=== PATIENT | female | born 1945 | race Two or more races ===

== ENCOUNTER 2024-04-09 15:05 | Emergency (ER) | payer OTHER, SELFPAY ==
[2024-04-09] VITALS (16 sets, daily range): BP systolic 181–228; BP diastolic 73–82; PULSE 49–88; RESP 15–23; TEMP 36.3–36.8; O2SAT 92–100; BMI 44.6
--- NOTE | 2024-04-09 15:15 | EKG_ITS ---
[facility] Test Date: 2024-04-09 Pat Name: DIANA ALVA Department: Room: - Gender: Female [employer]over: : 1945 Requested By: Alirio Parr Order Number: [id number] Reading MD: Alirio Parr Measurements Intervals [place] Rate: 51 P: 69 UT: 190 QRS: 34 QRSD: 96 T: 127 QT: 459 QTc: 424 Interpretive Statements SINUS BRADYCARDIA ST DEVIATION AND MODERATE T-WAVE ABNORMALITY, CONSIDER LATERAL ISCHEMIA [-0.1+ mV T WAVE IN I/aVL/V5/V6] Compared to ECG 09/18/2023 03:47:30 Possible ischemia now present Sinus rhythm no longer present T-wave abnormality still present /store/S0/[id number]/ecg/[id number].pdf
--- NOTE | 2024-04-09 15:15 | XR_ITS ---
Examination: AP chest single view Technique: AP portable sitting chest single view Exam date and time: April 09, 2024 1611 hrs. Comparison September 18, 2023 Indications: Coughing shortness of breath beginning 3 days ago. Findings: Bibasilar pneumonia, more severe left base Mild elevation left hemidiaphragm Prominent central pulmonary arteries, pulmonary artery hypertension pattern with mild vascular congestion Severe osteopenia Impression: Bibasilar pneumonia Pulmonary artery hypertension pattern
[2024-04-09 15:33] LABS: Basophils # (Auto) 0.1 Thou/mm3 (0.0-0.2); Basophils % (Auto) 0 % (0-2.5); Eosinophils # (Auto) 0.6 Thou/mm3 (0.0-0.5); Eosinophils % (Auto) 4 % (0-10); Hematocrit 39.3 % (36.0-46.0); Hemoglobin 12.7 g/dL (12.0-16.0); Immature Granulocytes % (Auto) 1 % (0-0); Immature Granulocytes Auto 0.09 Thou/mm3 (0.00-0.00); Lactate (Lactic Acid) 1.1 mMol/L (0.4-2.0); Lymphocytes # (Auto) 2.2 Thou/mm3 (1.0-4.8); Lymphocytes % (Auto) 15 % (10-50); Mean Corpuscular HGB Conc 32.3 g/dl (31.0-37.0); Mean Corpuscular Hemoglobin 28.5 pg (25.0-35.0); Mean Corpuscular Volume 88 fL (80-100); Monocytes # (Auto) 1.1 Thou/mm3 (0.0-0.8); Monocytes % (Auto) 8 % (0-12); Neutrophils # (Auto) 10.4 Thou/mm3 (1.8-7.7); Neutrophils % (Auto) 72 % (37-80); Nucleated Red Blood Cell % 0 /100 WBC (0); Platelet Count 263 Thou/mm3 (140-440); RDW Standard Deviation 42.9 fL (36.4-46.3); Red Blood Count 4.46 Miln/mm3 (4.00-5.20); White Blood Count 14.4 Thou/mm3 (3.6-11.0)
--- NOTE | 2024-04-09 15:40 | PC.NURSE ---
PT CAME IN WITH C/O COUGH AND DIFFICULTY BREATHING FOR A FEW DAYS BUT STATES ITS BEEN WORSE THE LAST 2 DAYS. PT IS ABLE TO SPEAK FULL SENTENCES AT THIS TIME WITHOUT DIFFICULTY. RESPIRATIONS EVEN AND UNLABORED. PT STATES SOB IS WORSE ON EXERTION. PT PLACED ON CC MONITOR
[2024-04-09] MEDS: predniSONE 20 MG TABLET 60 MG PO (16:00)
[2024-04-09 16:14] LABS: Alanine Aminotransferase 9 U/L (10-49); Albumin, Serum 3.8 gm/dL (3.4-4.8); Albumin/Globulin Ratio 1.5 (1.2-2.2); Alkaline Phosphatase 79 U/L (46-116); Anion Gap 6 (7-16); Aspartate Amino Transferase 10 U/L (0-34); BUN/Creatinine Ratio 21 Ratio (12-20); Bilirubin,Total 0.5 mg/dL (0.3-1.2); Blood Urea Nitrogen 21 mg/dL (9-23); Calcium (Corrected) 9.2 mg/dL (8.5-10.1); Carbon Dioxide 28.6 mMol/L (20.0-31.0); Chloride 102 mMol/L (98-107); Estimated Creatinine Clearance 58.6 mL/min (>60); Globulin 2.6 gm/dL (2.3-3.5); Glucose 228 mg/dL (74-106); Osmolality,Calculated 283 (275-295); Potassium 4.2 mMol/L (3.4-5.1); Procalcitonin 0.05 ng/ml (0.0-0.49); Sodium 137 mMol/L (136-145); Total Protein 6.4 gm/dL (5.7-8.2); eGFR 58 See Note
[2024-04-09] MEDS: ALBUTEROL/IPRATROPIUM (Duoneb) RT SOL 3 ML NEBU INH ×2 (16:23→21:00)
[2024-04-09] MEDS: IPRATROPIUM RT 0.5 MG/ 2.5 ML NEBU INH (17:15)
--- NOTE | 2024-04-09 17:58 | PD.EDSOB ---
ED SOB =RME/HPI General Chief Complaint: Shortness of Breath/Dyspnea Stated Complaint: SOB Time Seen by Provider: 04/09/24 15:09 Arrival date/time: 04/09/24 15:05 RME / HPI RME / HPI Narrative: 78-year-old female with history of COPD who presents with 3 days of cough and now 2 days of worsening shortness of breath. Patient uses oxygen 2 L nasal cannula as needed but has not used it these last 2 days. She is not currently on steroids, she is not currently on antibiotics. She denies flu shot this year. She denies chest pain. Related Data Home Medications ?Medication ?Instructions ?Recorded ?Confirmed fluticasone fur. 100 mcg-umeclid inhalation 07/28/23 62.5 mcg-vilant 25 mcg inhalat.powder (Trelegy Ellipta) furosemide 40 mg tablet 40 mg PO 1XD 07/28/23 07/28/23 Previous Rx's ?Medication ?Instructions ?Recorded albuterol sulfate 90 mcg/actuation 2 inh inhalation Q4H PRN shortness 07/09/22 aerosol inhaler of breath or wheezing #8.5 grams albuterol sulfate 90 mcg/actuation 2 puff inhalation Q4HR PRN 04/11/23 aerosol inhaler Shortness Of Breath #1 inh amiodarone 200 mg tablet 200 mg PO QDAY #30 tabs 04/11/23 aspirin 81 mg tablet,delayed 81 mg PO QDAY #30 tabs 04/11/23 release atenolol 50 mg tablet 50 mg PO QDAY #30 tabs 04/11/23 atorvastatin 40 mg tablet 40 mg PO QPM #30 tabs 04/11/23 fluticasone fur. 100 mcg-umeclid 1 inh inhalation QDAY #60 ea 04/11/23 62.5 mcg-vilant 25 mcg inhalat.powder (Trelegy Ellipta) insulin glargine 100 unit/mL (3 10 unit (0.1 mL) subcut QPM #15 mL 04/11/23 mL) subcutaneous pen (Lantus Solostar U-100 Insulin) lisinopril 40 mg tablet 40 mg PO QDAY #30 tabs 04/11/23 pen needle, diabetic 29 gauge x #100 ea 04/11/2304/11 (Pen Needle) albuterol sulfate 90 mcg/actuation 1 inh inhalation QID PRN shortness 09/08/23 aerosol inhaler of breath or wheezing #8.5 grams doxycycline monohydrate 100 mg 100 mg PO BID #10 caps 09/08/23 capsule prednisone 50 mg tablet 50 mg PO QDAY #5 tabs 09/08/23 albuterol sulfate 2.5 mg/3 mL 2.5 mg (3 mL) inhalation Q4H PRN 09/18/23 (0.083 %) solution for nebulization shortness of breath or wheezing #90 mL albuterol sulfate 90 mcg/actuation 2 inh inhalation Q4H PRN shortness 09/18/23 aerosol inhaler of breath or wheezing #8.5 grams azithromycin 250 mg tablet See Rx Instructions PO .COMPLEX #6 09/18/23 (Zithromax Z-Peter) tabs prednisone 50 mg tablet 50 mg PO QDAY 5 days #5 tabs 04/09/24 Allergies Allergy/AdvReac Type Severity Reaction Status Date / Time No Known Allergies Allergy Verified 04/09/24 15:41 Review of Systems Review of Systems Systems Reviewed: All systems reviewed, normal except as documented ED Exam Narrative Physical exam: GENERAL APPEARANCE: AxOx4, generally well-appearing, no acute distress, elevated BMI HEENT: NC, AT. MMM. EOMI, clear conjunctiva, oropharynx clear. NECK: Supple without lymphadenopathy. No stiffness or restricted ROM. HEART: Normal rate and regular rhythm, normal S1/S1, no m/r/g LUNGS: moving air well. Can expiratory wheezes. no crackles or wheezes are heard. ABDOMEN: Soft, nontender, nondistended with good bowel sounds heard. BACK: No midline C/T/L spine pain or deformity, No CVAT, no obvious deformity. EXTREMITIES: Without cyanosis, clubbing or edema. MUSCULOSKELETAL: FROM of all major joints, no chest tenderness NEUROLOGICAL: Grossly nonfocal. Alert and oriented, moving all 4 extremities. CN not formally tested but appear grossly intact. Observed to ambulate with normal gait. Skin: Warm and dry without any rash. Course Course Course Narrative: After first nebulizer treatment patient states breathing has mildly improved, auscultation reveals continued bolden expiratory wheezes. Will continue additional nebulized treatments. Quality Measures none Orders Category Date Time Status EKG (ED ONLY) *Do not use* NOW Care 04/09/24 15:15 Completed EKG (ED Only) Stat Exams 04/09/24 15:15 Draft XR chest 1V Stat Exams 04/09/24 15:15 Completed CBC Stat Lab 04/09/24 15:27 Completed CMP [Comprehensive Metabolic Panel] Stat Lab 04/09/24 15:27 Completed Lactate (Lactic Acid) Stat Lab 04/09/24 15:27 Completed Procalcitonin Stat Lab 04/09/24 15:27 Completed ALBUTEROL RT 5 ml [Proventil Rt 5 ml] Med 04/09/24 17:05 Discontinued 5 mg INH X1 ONE Albuterol/Ipratr Rt Laura [Duoneb Rt Laura] Med 04/09/24 15:14 Discontinued 3 ml INH X1 ONE Ipratropium Forgan Rt Laura [Atrovent Rt Laura] Med 04/09/24 17:05 Discontinued 0.5 mg INH X1 ONE predniSONE Med 04/09/24 15:14 Discontinued 60 mg PO X1 ONE Vital Signs Vital signs: Vital Signs Temperature 98.2 F 04/09/24 15:29 Pulse Rate 51 L 04/09/24 15:29 Respiratory Rate 18 04/09/24 15:29 Blood Pressure 198/82 H 04/09/24 15:29 Pulse Oximetry (%) 97 04/09/24 15:29 Oxygen Delivery Method Room Air 04/09/24 15:29 Shortness of Breath / Dyspnea MDM Narrative MDM Narrative:: 78-year-old female with history of COPD who presents with signs and symptoms consistent with a COPD exacerbation in the setting of a upper respiratory infection/cough. She has a long history of COPD, is elderly and fragile therefore further workup such as laboratory testing and chest x-ray indicated here today. She was started on oral steroids and aggressive bronco dilator treatment. Patient was signed out to oncoming provider pending results, reevaluation, and final disposition Patient data External records reviewed:: [facility] previous records Clinical information provided by:: patient Social determinants that could affect healthcare access:: none Patient has the following chronic illnesses:: COPD How is presenting disease/condition affected by chronic disease/condition?: no chronic disease Evaluation data The following diagnostics were reviewed and interpreted by me:: lab results, radiology exam(s) and EKG tracing(s) Lab and/or radiology exams considered but not ordered:: Workup in progress Interpretation Summary: Workup in progress Medications / Prescriptions Medications or Prescriptions considered but not ordered:: Workup in progress Medication administrations:: Medication Administration History Discontinued Medications Albuterol (Albuterol Rt 25 Mg/5 Ml Nebu) 5 mg INH X1 ONE Stop: 04/09/24 17:06 Last Admin: 04/09/24 17:21 Dose: Not Given Documented By: CHRISTINE Non-Admin Reason: Medication Not Available Albuterol/Ipratropium (Albuterol/Ipratropium (Duoneb) Rt Laura 3 Ml Nebu) 3 ml INH X1 ONE Stop: 04/09/24 15:15 Last Admin: 04/09/24 16:23 Dose: 3 ml Documented By: CHRISTINE Ipratropium Forgan (Ipratropium Rt 0.5 Mg/ 2.5 Ml Nebu) 0.5 mg INH X1 ONE Stop: 04/09/24 17:06 Last Admin: 04/09/24 17:15 Dose: 0.5 mg Documented By: CHRISTINE Prednisone (Prednisone 20 Mg Tablet) 60 mg PO X1 ONE Stop: 04/09/24 15:15 Last Admin: 04/09/24 16:00 Dose: 60 mg Documented By: DO Above Consultations Consultation(s) initiated? (list below): No Diagnosis Shortness of Breath Differential Diagnosis: acute exacerbation of chronic obstructive airways disease, congestive heart failure, community acquired pneumonia and asthma with exacerbation Most likely diagnosis given after review of the tests above:: Workup in progress Admission Indicated Admission indicated?: not indicated Admission Request Was there a request for admission?: No Admission Attestation Admission request attestation: Workup in progress, patient signed out to oncoming provider, Dr. Vallecillo, pending results, reevaluation, and final disposition Disposition Plan Disposition Plan: other (specify) (Signed out to oncoming provider in stable condition) Discharge Plan Prescriptions/Referrals Prescriptions/Med Rec: New prednisone 50 mg tablet 50 mg PO QDAY 5 Days Qty: 5 0RF No Action albuterol sulfate 90 mcg/actuation HFA aerosol inhaler 2 inh inhalation Q4H PRN (Reason: shortness of breath or wheezing) Qty: 8.5 0RF Trelegy Ellipta 100-62.5-25 mcg blister with device 1 inh inhalation QDAY Qty: 60 0RF insulin glargine [Lantus Solostar U-100 Insulin] 100 unit/mL (3 mL) insulin pen 10 unit subcut QPM Qty: 15 0RF (DME) pen needle, diabetic [Pen Needle] 29 gauge x 1/2 needle See Rx Instructions .Route Qty: 100 0RF Rx Instructions: As directed, once daily amiodarone 200 mg tablet 200 mg PO QDAY Qty: 30 0RF aspirin 81 mg tablet,delayed release (DR/EC) 81 mg PO QDAY Qty: 30 0RF lisinopril 40 mg tablet 40 mg PO QDAY Qty: 30 2RF atenolol 50 mg Tablet 50 mg PO QDAY Qty: 30 0RF atorvastatin 40 mg tablet 40 mg PO QPM Qty: 30 0RF albuterol sulfate 90 mcg/actuation HFA aerosol inhaler 2 puff INHALATION Q4HR PRN (Reason: Shortness Of Breath) Qty: 1 0RF furosemide 40 mg tablet 40 mg PO 1XD Trelegy Ellipta 100-62.5-25 mcg blister with device INHALATION albuterol sulfate 90 mcg/actuation HFA aerosol inhaler 1 inh inhalation QID PRN (Reason: shortness of breath or wheezing) Qty: 8.5 0RF doxycycline monohydrate 100 mg capsule 100 mg PO BID Qty: 10 0RF prednisone 50 mg tablet 50 mg PO QDAY Qty: 5 0RF albuterol sulfate 2.5 mg /3 mL (0.083 %) solution for nebulization 2.5 mg inhalation Q4H PRN (Reason: shortness of breath or wheezing) Qty: 90 0RF albuterol sulfate 90 mcg/actuation HFA aerosol inhaler 2 inh inhalation Q4H PRN (Reason: shortness of breath or wheezing) Qty: 8.5 0RF azithromycin [Zithromax Z-Peter] 250 mg tablet See Rx Instructions PO .COMPLEX Qty: 6 0RF Rx Instructions: For 250 mg dose pack: take 500 mg today (day 1), then 250 mg for 4 days (days 2-5) Referrals: Agustín Reece MD [Primary Care Provider] - In 1 week Problem List Clinical Impression: Asthma exacerbation in COPD, Bronchitis Patient/Caregiver Discharge Instructions Education Materials: ED COPD Flare Additional Instructions: Continue with 1 puff from your inhaler every 6 hours for the next 3 days. After 3 days you can use your inhaler as needed for shortness of breath/wheezing. Follow-up with your primary care doctor in 2 to 3 days for recheck. You can return to the emergency department sooner symptoms worsen or if he notes any new, concerning issues. Print Language: Turkish
--- NOTE | 2024-04-09 18:07 | EDNOTE_ITS ---
Emergency Room Addendum Addendum Narrative: 1800: Care assumed from Dr. Parr, the previous shift emergency physician. Past medical, surgical, social and family history reviewed. Vitals and home medications reviewed. Results and treatment plan discussed. I will assume the care of the patient at this time and will follow the patient, pending CXR, labs, and re-evaluation. Please refer to the emergency department record for history and examination from initial visit. WBC count is elevated at 14.4, Glucose is elevated at 228, Lactic Acid is normal, Procalcitonin is normal, according to my interpretation. CXR shows normal cardiac silhouette, normal sharp diaphragmatic edge, bilateral perihilar inferior infiltrates, normal costophrenic angles, according to my interpretation. EKG done at 1612. sinus bradycardia, rate of 51, normal axis, no ectopy, inverted T waves in lead I and aVL, no acute ischemia, according to my interpretation. 2024: On re-evaluation, patient states she always has a hard time breathing and was coughing up yellow sputum. She is on 2L PRN at home and does not feel that she needs it right now. Patient will receive another nebulizer treatment and antibiotics before being discharged home. Diagnosis: bibasilar pneumonia RADIOLOGY RESULTS: [facility] Report Signed Patient: DIANA ALVA Record#: [id number] Birthdate: 1945 Age/Sex: 78 / F Location: [facility] Attending Dr: Ordering Physician: Alirio Parr MD Date of Service: 04/09/24 Procedure(s): XR chest 1V Accession Number(s): [id number] cc: Agustín Reece MD; Alirio Parr MD; Garcia Mcnamara MD~ Examination: AP chest single view Technique: AP portable sitting chest single view Exam date and time: April 09, 2024 1611 hrs. Comparison September 18, 2023 Indications: Coughing shortness of breath beginning 3 days ago. Findings: Bibasilar pneumonia, more severe left base Mild elevation left hemidiaphragm Prominent central pulmonary arteries, pulmonary artery hypertension pattern with mild vascular congestion Severe osteopenia Impression: Bibasilar pneumonia Pulmonary artery hypertension pattern Dictated By: Garcia Mcnamara MD Signed By: <Electronically signed by Garcia Mcnamara MD in OV> 04/09/24 [id number]
--- NOTE | 2024-04-09 18:15 | PC.NURSE ---
PT RESTING IN BED IN NO APPARENT DISTRESS. CALL LIGHT WITHIN REACH
--- NOTE | 2024-04-10 01:11 | PC.NURSE ---
0110 PURNIMA ATTEMP UNANSWERED AT THIS TIME. HAVE MAD NUMEROUS ATTEMPT TO CONTACT PERSONS ON CONTACT LIST SPOKE WITH SON KAITLIN HE STATED HE WAS IN FOR THE NIGHT. I ASKED HIM TO CLARIFY AND HE STATED HE WASN'T GOING ANYWHERE TONIGHT.
== END 2024-04-09 21:00 | disposition home or self-care (01) ==
PROVIDERS: Emergency Provider Emergency Medicine; PCP Family Medicine; Referring Provider Emergency Medicine
DX: J45.901 Unspecified asthma with (acute) exacerbation (principal); J44.1 Chronic obstructive pulmonary disease with (acute) exacerbation; J44.0 Chronic obstructive pulmonary disease with (acute) lower respiratory infection; R00.1 Bradycardia, unspecified; J18.9 Pneumonia, unspecified organism
CPT/HCPCS: 36415; 71045; 80053; 83605; 84145; 85025; 94640; 99284; A9270; J7512

== ENCOUNTER 2024-06-15 10:38 | Inpatient (IN) | payer OTHER, MEDICARE, SELFPAY ==
[2024-06-15] VITALS (13 sets, daily range): BP systolic 168–219; BP diastolic 54–120; PULSE 62–74; RESP 16–89; TEMP 36.6–36.9; O2SAT 94–99; BMI 46.0
--- NOTE | 2024-06-15 10:40 | PC.NURSE ---
PT BROUGHT IN BY AMBULANCE FROM HOME. PER MEDIC, PT'S ARRESTED TODAY AND THERE IS NO ONE TO CARE FOR PT. MEDIC STATES POLICE ON SCENE PUT HER ON 5150 FOR GRAVELY DISABLED SINCE SHE CAN NOT WALK OR TAKE CARE OF HERSELF AND THE POLICE ARE CONDEMING HER HOUSE. MEDIC STATES HOME CLUTTERED AND FILLED WITH [employer]. PT STATES HAS NOT HAD SHOWER IN AT LEAST 1 WEEK. STATES MY HOUSE IS CLUTTERED BUT CLEAN. THEY JUST CLEANED THE AREA I LIVE IN. MEMBER OF PARLIAMENT INFORMED ABOUT 5150 AND CONDITION OF PT'S HOME (FROM THE MEDIC).
--- NOTE | 2024-06-15 10:41 | PD.EDADULT ---
ED General RME/HPI General Chief complaint: General Adult/Misc Complain Stated complaint: HOLD FOR GRAVELY DISABLED Time Seen by Provider: 06/15/24 10:51 Arrival date/time: 06/15/24 10:38 RME / HPI RME / HPI narrative: DR. RICHMOND MAIN ED EVALUATION: 78 year old female presents to the Emergency Department BIBA after her section hand helper was arrested prior to arrival and police on-scene placed the patient on a hold for gravely disabled. Patient is on hospice care. Patient denies any complaints, asymptomatic. Per EMS, at home it was dirty with dog feces everywhere, non living conditions. Patient reports hospice comes only once a month. PMHx: Atrial fibrillation, CHF, CAD, COPD on 2L home oxygen, type 2 diabetes. Social Hx: No tobacco, alcohol, or substance use. Related Data Home Medications ?Medication ?Instructions ?Recorded ?Confirmed furosemide 40 mg tablet 40 mg PO 1XD 07/28/23 06/15/24 tiotropium bromide 1.25 2 inh inhalation Q24H 06/15/24 06/15/24 mcg/actuation mist for inhalation (Spiriva Respimat) Previous Rx's ?Medication ?Instructions ?Recorded albuterol sulfate 90 mcg/actuation 2 inh inhalation Q4H PRN shortness 07/09/22 aerosol inhaler of breath or wheezing #8.5 grams albuterol sulfate 90 mcg/actuation 2 puff inhalation Q4HR PRN 04/11/23 aerosol inhaler Shortness Of Breath #1 inh aspirin 81 mg tablet,delayed 81 mg PO QDAY #30 tabs 04/11/23 release atenolol 50 mg tablet 50 mg PO QDAY #30 tabs 04/11/23 atorvastatin 40 mg tablet 40 mg PO QPM #30 tabs 04/11/23 lisinopril 40 mg tablet 40 mg PO QDAY #30 tabs 04/11/23 albuterol sulfate 2.5 mg/3 mL 2.5 mg (3 mL) inhalation Q4H PRN 09/18/23 (0.083 %) solution for nebulization shortness of breath or wheezing #90 mL Allergies Allergy/AdvReac Type Severity Reaction Status Date / Time No Known Allergies Allergy Verified 06/15/24 10:52 Review of Systems Review of Systems Systems Reviewed: All systems reviewed, normal except as documented Narrative Review of Systems: GEN: No fever, no chills, no weight loss EYES: No discharge, no visual changes, no pain HEENT: No ear pain, no congestion, no sore throat PULM: No shortness of breath, no cough, no congestion CV: No chest pain, no dyspnea on exertion, no palpitations GI: No nausea, no vomiting, no diarrhea, no pain, no constipation : No frequency, no urgency and no dysuria MUSC/SKEL: No joint pain, no back pain SKIN: No rash PSYCH: No hallucinations, no depression HEME/LYMPH: No easy bleeding or bruising tendencies NEURO: No weakness, no headache Past Medical History Past Medical History NEUROLOGIC: Positive Neurological Disorders and Cerebrovascular Accident; Negative Seizures CARDIAC: Positive Cardiac Disorders, Atrial Fibrillation, Hypercholesterolemia, Congestive Heart Failure, Cellulitis and Hypertension RESPIRATORY: Positive Chronic Obstructive Pulmonary Disease (COPD), Asthma, Pneumonia, Sleep Apnea and Smoking Exposure GASTROINTESTINAL: Positive Gastrointestinal Disorders and Obesity; Negative Hepatitis GENITOURINARY: Positive Genitourinary Disorders and Inguinal Hernia; Negative Renal Disease REPRODUCTIVE: Positive Previous Pregnancies MUSCULOSKELETAL: Negative Musculoskeletal Disorders, Bone Cancer or Carpal Tunnel Syndrome ENT: Negative Cataracts ENDOCRINE: Positive Endocrine Disorders and Diabetes Mellitus Type 2; Negative Diabetes Mellitus Type 1 HEMATOLOGIC: Negative Blood Disorders or Sickle Cell Disease PSYCHO/SOCIAL: Positive Depression and Anxiety OTHER HISTORY: Positive Hospitalization Family History FAMILY HISTORY: Positive Family Cardiac Disorders, Family Gastrointestinal Problems and Family Cancer Surgical History SURGICAL: Positive Hysterectomy; Negative Cardiac Surgery, Endocrine Surgery, Thyroidectomy, Ear Surgery, Tympanostomy Tube, Eye Surgery, Nose Surgery, Oral Surgery, Tonsillectomy, Adenoidectomy, Cochlear Implant, Corneal Transplant, Throat Surgery, Abdominal Surgery, Tracheostomy, Gastric Bypass Surgery, Gastrostomy, Bowel Surgery, Nephrectomy, Transurethral Resection, Joint Replacement, Amputation, Open Reduction Internal Fixation, Arthroscopy, Neurologic Surgery or Brain Shunt Social History SMOKING STATUS: Never smoker SECOND HAND EXPOSURE: Yes SUBSTANCE USE: does not use ALCOHOL: Never ED Exam Narrative Physical exam: GENERAL APPEARANCE: alert and oriented x 4, well-developed, well-nourished, no acute distress VITALS: All vitals were reviewed and the pulse ox is 94% on room air, which is normal according to my interpretation. HEENT: Normocephalic, atraumatic; pupils equal, round, reactive to light; EOMI; mucous membranes pink, moist; oropharynx clear NECK: Supple LUNGS: CTABL; no wheezes, no rales, no rhonchi HEART: Regular rate, regular rhythm; normal S1, S2; no murmurs ABDOMEN: non distended; normal BS; soft, no tenderness, no guarding, no rebound; no masses, no organomegaly, no hernia BACK: no CVA tenderness EXTREMITIES: atraumatic; no edema NEUROLOGIC: awake; alert and oriented x4; cranial nerves II-XII grossly intact; no focal sensory or motor deficits PSYCHIATRIC: appropriate mood and affect SKIN: warm, dry, normal color; no rashes Course Course Course Narrative: 1106: Mental health rescinded the hold, working on discharge. 1800: Patient was signed out to Dr. Jenkins. Past medical, surgical, social and family history reviewed. Vitals and home medications reviewed. Results and treatment plan discussed. They will assume the care of the patient at this time and will follow the patient, pending placement. Quality Measures none Orders Category Date Time Status PT [Referral Physical Therapy] Stat Cons 06/15/24 12:18 Completed Referral Physical Therapy Stat Cons 06/15/24 13:11 Completed Diet Regular Diet 06/15/24 Dinner Active Alcohol, Urine Stat Lab 06/15/24 16:50 Completed CBC Stat Lab 06/15/24 16:11 Completed Comprehensive Metabolic Panel Stat Lab 06/15/24 16:11 Completed Drug Screen,Urine Stat Lab 06/15/24 16:50 Completed Magnesium Stat Lab 06/15/24 16:11 Completed Partial Thromboplastin Time Stat Lab 06/15/24 16:11 Completed Prothrombin Time with INR Stat Lab 06/15/24 16:11 Completed hydrALAZINE HCL [Apresoline] Med 06/15/24 12:21 Discontinued 25 mg PO X1 ONE hydrALAZINE HCL [Apresoline] Med 06/15/24 16:57 Discontinued 25 mg PO X1 ONE Late Tray Request Routine Oth 06/15/24 11:45 Active Oxygen Delivery NOW RT 06/15/24 17:48 Active Vital Signs Vital signs: Vital Signs Temperature 98.1 F 06/15/24 10:39 Pulse Rate 69 06/15/24 10:39 Respiratory Rate 20 06/15/24 10:39 Blood Pressure 196/76 H 06/15/24 10:39 Pulse Oximetry (%) 94 L 06/15/24 10:39 Oxygen Delivery Method Room Air 06/15/24 10:39 [facility] Patient data External records reviewed:: [facility] previous records and EMS form Clinical information provided by:: patient and EMS Social determinants that could affect healthcare access:: none Patient has the following chronic illnesses:: Atrial fibrillation, CHF, CAD, COPD on 2L home oxygen, type 2 diabetes. How is presenting disease/condition affected by chronic disease/condition?: exacerbated by Evaluation data The following diagnostics were reviewed and interpreted by me:: lab results Lab and/or radiology exams considered but not ordered:: none Interpretation Summary: no acute finding Medications Medications considered but not ordered:: none Medication administrations:: Medication Administration History Discontinued Medications Hydralazine HCl (Hydralazine Hcl 25 Mg Tablet) 25 mg PO X1 ONE Stop: 06/15/24 12:22 Last Admin: 06/15/24 12:29 Dose: 25 mg Documented By: CODY Hydralazine HCl (Hydralazine Hcl 25 Mg Tablet) 25 mg PO X1 ONE Stop: 06/15/24 16:58 Last Admin: 06/15/24 17:00 Dose: 25 mg Documented By: CODY see above Consultations Consultation(s) initiated? (list below): No Diagnosis Differential Diagnosis ED Complaint MDM: evaluation for placement Most likely diagnosis given after review of the tests above:: Evaluation by medical service required Admission Indicated Admission indicated?: not indicated Explain why admission is indicated or not indicated:: Pending placement. Admission Request Was there a request for admission?: No Disposition Plan Disposition Plan: other (specify) (Patient signout to the loft worker head provider, pending placement.) Medical Decision Making MDM Narrative MDM Narrative: IChantal am scribing for and in the presence of Dr. Richmond. Differential Diagnosis Differential Diagnosis: evaluation for placement Lab Data 06/15/24 16:11 06/15/24 16:11 Labs: Lab Results 06/15/24 06/15/24 Range/Units 16:11 16:50 WBC 14.0 H (3.6-11.0) Thou/mm3 RBC 4.58 (4.00-5.20) Miln/mm3 Hgb 13.1 (12.0-16.0) g/dL Hct 40.0 (36.0-46.0) % MCV 87 (80-100) fL MCH 28.6 (25.0-35.0) pg MCHC 32.8 (31.0-37.0) g/dl RDW Std Deviation 42.1 (36.4-46.3) fL Plt Count 248 (140-440) Thou/mm3 Neut % (Auto) 77 (37-80) % Lymph % (Auto) 11 (10-50) % [place] % (Auto) 8 (0-12) % Eos % (Auto) 3 (0-10) % Baso % (Auto) 0 (0-2.5) % Neut # (Auto) 10.8 H (1.8-7.7) Thou/mm3 Lymph # (Auto) 1.6 (1.0-4.8) Thou/mm3 [place] # (Auto) 1.1 H (0.0-0.8) Thou/mm3 Eos # (Auto) 0.4 (0.0-0.5) Thou/mm3 Baso # (Auto) 0.1 (0.0-0.2) Thou/mm3 Immature Gran # (Auto) 0.06 H (0.00-0.00) Thou/mm3 Absolute Nucleated RBC 0.00 (0.00-0.00) Thou/mm3 Immature Gran % 0 (0-0) % Nucleated RBC % 0 (0) /100 WBC PT 11.4 (9.0-12.2) Seconds INR 1.0 (0.9-1.3) APTT 28.2 (22.0-36.0) Seconds Sodium 139 (136-145) mMol/L Potassium 4.2 (3.4-5.1) mMol/L Chloride 102 (98-107) mMol/L Carbon Dioxide 31.4 H (20.0-31.0) mMol/L Anion Gap 6 L (7-16) BUN 16 (9-23) mg/dL Creatinine 1.0 (0.6-1.3) mg/dL Estim Creat Clear Calc 59.6 L (>60) mL/min eGFR 58 L (60 - ) See Note BUN/Creatinine Ratio 16 (12-20) Ratio Glucose 220 H (74-106) mg/dL Calculated Osmolality 285 (275-295) Calcium 8.7 (8.3-10.6) mg/dL Corrected Calcium 9.1 (8.5-10.1) mg/dL Magnesium 1.6 (1.6-2.6) mg/dL Total Bilirubin 0.7 (0.3-1.2) mg/dL AST 13 (0-34) U/L ALT 11 (10-49) U/L Alkaline Phosphatase 72 (46-116) U/L Total Protein 6.0 (5.7-8.2) gm/dL Albumin 3.5 (3.4-4.8) gm/dL Globulin 2.5 (2.3-3.5) gm/dL Albumin/Globulin Ratio 1.4 (1.2-2.2) Urine Opiates Screen Negative (Negative) Urine Fentanyl Screen Negative (Negative) Ur Barbiturates Screen Negative (Negative) U Amphetamin/Meth Scrn Negative (Negative) U Benzodiazepines Scrn Negative (Negative) U Cocaine Metab Screen Negative (Negative) U Marijuana (THC) Screen Negative (Negative) Urine Alcohol Negative (Negative) Discharge Plan Prescriptions/Referrals Prescriptions/Med Rec: No Action albuterol sulfate 90 mcg/actuation HFA aerosol inhaler 2 inh inhalation Q4H PRN (Reason: shortness of breath or wheezing) Qty: 8.5 0RF Spiriva Respimat 1.25 mcg/actuation mist 2 inh inhalation Q24H aspirin 81 mg tablet,delayed release (DR/EC) 81 mg PO QDAY Qty: 30 0RF lisinopril 40 mg tablet 40 mg PO QDAY Qty: 30 2RF atenolol 50 mg Tablet 50 mg PO QDAY Qty: 30 0RF atorvastatin 40 mg tablet 40 mg PO QPM Qty: 30 0RF albuterol sulfate 90 mcg/actuation HFA aerosol inhaler 2 puff INHALATION Q4HR PRN (Reason: Shortness Of Breath) Qty: 1 0RF furosemide 40 mg tablet 40 mg PO 1XD albuterol sulfate 2.5 mg /3 mL (0.083 %) solution for nebulization 2.5 mg inhalation Q4H PRN (Reason: shortness of breath or wheezing) Qty: 90 0RF Referrals: Agustín Reece MD [Primary Care Provider] - In 1 week Problem List Clinical Impression: Evaluation by medical service required Patient/Caregiver Discharge Instructions Print Language: Estonian
--- NOTE | 2024-06-15 11:01 | PC.NURSE ---
5150 CLEARED BY TECHNICAL ANALYST AFTER DR. CHURCHILL DECLARED PT MEDICALLY CLEARED.
--- NOTE | 2024-06-15 12:19 | PC.NURSE ---
STRAIGHTENER AND ALIGNER IN WITH PT
--- NOTE | 2024-06-15 12:19 | PC.NURSE ---
PER PRODUCE WRAPPER NEED PT EVAL FOR SNF PLACEMENT PT HAS NO FAMILY AND SON NOT ANSWERING
--- NOTE | 2024-06-15 12:21 | PC.NURSE ---
/KERA PROVIDER OF B/P 219/120
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
[2024-06-15] MEDS: hydrALAZINE HCL 25 MG TABLET PO ×2 (12:29→17:00)
--- NOTE | 2024-06-15 12:47 | PC.CC ---
ED Heavy Equipment Technician attempted to contact Pt son and next of kin Cal Rosa [phone] but was not able to reach him.
--- NOTE | 2024-06-15 12:49 | PC.CC ---
ED Senior Technical Manager communicated with medical staff- attending doctor and nurse: PT David requested- [employer] as Insurance provider. Pullman Conductor contacted PT at extensions [phone]- No answer.
--- NOTE | 2024-06-15 12:52 | PC.CC ---
EC Chief Development Officer communicated with LT from [employer] in regards to current situation with Pt. Research And Development Tester informed LT APS Report completed. LT reported home Pt was living in was officially commend due living conditions. LT reported Pt will not be able to return to home.
--- NOTE | 2024-06-15 14:03 | PC.PT ---
PT eval completed.
--- NOTE | 2024-06-15 14:59 | PC.CC ---
ED Excavating Contractor engaged [facility]PD in conversation regarding Pt current status and notified them that SNIF placement will be requested for Pt waiting on PT eval to be completed. PPD asked to speak with Pt, telegraphic typewriter operator chief walked PPD to room.
--- NOTE | 2024-06-15 16:04 | PC.CC ---
ED System Technologist completed and submitted on SNIF on About. SNIF packet was sent out to all local SNIF.
--- NOTE | 2024-06-15 16:05 | PC.CC ---
[facility]- Formally known as [facility] [address] [place], [place] [id number]- Declined due to no beds available.
[2024-06-15 16:20] LABS: Basophils # (Auto) 0.1 Thou/mm3 (0.0-0.2); Basophils % (Auto) 0 % (0-2.5); Eosinophils # (Auto) 0.4 Thou/mm3 (0.0-0.5); Eosinophils % (Auto) 3 % (0-10); Hemoglobin 13.1 g/dL (12.0-16.0); Immature Granulocytes % (Auto) 0 % (0-0); Immature Granulocytes Auto 0.06 Thou/mm3 (0.00-0.00); Lymphocytes # (Auto) 1.6 Thou/mm3 (1.0-4.8); Lymphocytes % (Auto) 11 % (10-50); Mean Corpuscular HGB Conc 32.8 g/dl (31.0-37.0); Mean Corpuscular Hemoglobin 28.6 pg (25.0-35.0); Mean Corpuscular Volume 87 fL (80-100); Monocytes # (Auto) 1.1 Thou/mm3 (0.0-0.8); Monocytes % (Auto) 8 % (0-12); Neutrophils # (Auto) 10.8 Thou/mm3 (1.8-7.7); Neutrophils % (Auto) 77 % (37-80); Nucleated Red Blood Cell % 0 /100 WBC (0); Platelet Count 248 Thou/mm3 (140-440); RDW Standard Deviation 42.1 fL (36.4-46.3); Red Blood Count 4.58 Miln/mm3 (4.00-5.20)
[2024-06-15 16:32] LABS: Partial Thromboplastin Time 28.2 Seconds (22.0-36.0); Prothrombin Time 11.4 Seconds (9.0-12.2)
--- NOTE | 2024-06-15 16:42 | PC.CC ---
[facility] [address] [place] [id number] and [facility] [address] [place] [address] both are considering placement.
[2024-06-15 16:46] LABS: Alanine Aminotransferase 11 U/L (10-49); Albumin, Serum 3.5 gm/dL (3.4-4.8); Albumin/Globulin Ratio 1.4 (1.2-2.2); Alkaline Phosphatase 72 U/L (46-116); Anion Gap 6 (7-16); Aspartate Amino Transferase 13 U/L (0-34); BUN/Creatinine Ratio 16 Ratio (12-20); Bilirubin,Total 0.7 mg/dL (0.3-1.2); Blood Urea Nitrogen 16 mg/dL (9-23); Calcium 8.7 mg/dL (8.3-10.6); Calcium (Corrected) 9.1 mg/dL (8.5-10.1); Carbon Dioxide 31.4 mMol/L (20.0-31.0); Chloride 102 mMol/L (98-107); Estimated Creatinine Clearance 59.6 mL/min (>60); Globulin 2.5 gm/dL (2.3-3.5); Glucose 220 mg/dL (74-106); Magnesium 1.6 mg/dL (1.6-2.6); Osmolality,Calculated 285 (275-295); Potassium 4.2 mMol/L (3.4-5.1); Sodium 139 mMol/L (136-145); eGFR 58 See Note
[2024-06-15 17:26] LABS: Alcohol, Urine Negative (Negative); Amphetamine/Methamp Scrn,U Negative (Negative); Barbiturate Screen,Urine Negative (Negative); Benzodiazepines Screen,Urine Negative (Negative); Benzoylecgonine Screen, Ur Negative (Negative); Fentanyl Screen,Urine Negative (Negative); Opiate Screen,Urine Negative (Negative); THC Screen,Urine Negative (Negative)
--- NOTE | 2024-06-15 18:10 | PC.NURSE ---
notified dr. salas b/p 218/81
[2024-06-15] MEDS: cloNIDine HCL 0.1 MG TABLET 0.3 MG PO (18:13)
--- NOTE | 2024-06-15 18:25 | XR_ITS ---
Examination: AP chest single view Technique one AP portable semiupright chest single view Exam date and time: June 15, 2024 1836 hrs. Comparison 11/08/2023 Indications: Shortness of breath chest pain beginning 3 days ago. Findings: Moderate enlargement cardiac contour Moderate vascular congestion No lobar pneumonia Subsegmental atelectasis left base Impression: Moderate vascular congestion
--- NOTE | 2024-06-15 18:25 | XR_ITS ---
Examination: CT brain head without contrast. 2-D sagittal coronal reconstructions Date and time of exam:June 15, 2024 1855 hrs. Indications: High blood pressure with headache onset today CTDI: vol (mGy):59.2 DLP: (mGycm):1356 Technique: Multiple CT axial sections of the brain have been obtained, 5 mm slice thickness. Contrast has not been administered. 2-D sagittal, coronal reconstructions have been obtained Low dose protocols were performed. One or more of the following dose reduction techniques were used; automated exposure control, adjustment of the mA and/or KV according to patient size, use of iterative reconstruction technique. Findings: No significant ventricular enlargement. Intra-axial or extra-axial hemorrhage density is not seen. No mass effect or midline shift Basal cisterns are not remarkable. Fourth ventricle is midline. Cranial vault intact. Impression: Negative for acute hemorrhage, mass effect or midline shift 4 mm left parotid nodule, recommend elective MR pre and post contrast follow-up
--- NOTE | 2024-06-15 18:25 | EKG_ITS ---
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
--- NOTE | 2024-06-15 18:37 | PC.NURSE ---
IN AND OUT CATH NOT DONE PT USED HAT FOR UA
[2024-06-15 18:41] LABS: Collection Type, Urine Clean Catch
--- NOTE | 2024-06-15 18:49 | PD.EDADDENDU ---
Emergency Room Addendum Addendum Narrative: I took over the care from Dr. CHURCHILL at 6 PM on 06/15/2024, see her notes for complete H&P and ED course. During my watch, she was given oral clonidine 0.3 mg for hypertensive urgency with significant improvement. My workup for hypertensive urgency unremarkable: My interpretation of the EKG is: Sinus rhythm (69 bpm) with nonspecific ST-T changes. Eb Jenkins MD My review of the head CT report is no acute findings. Troponin negative. UA unremarkable. At 6 AM on 06/16/2024, the care of the patient was transferred to Dr. CHURCHILL. Otherwise, she remained stable during my watch. Eb Jenkins MD
[2024-06-15 18:52] LABS: Thyroid Stimulating Hormone 0.88 uIU/mL (0.55-4.78); Troponin I < 0.020 ng/mL (0.0-0.045)
[2024-06-15 18:56] LABS: Bilirubin,Urine Negative (Negative); Blood,Urine Negative (Negative); Clarity,Urine Clear (Clear/Hazy); Color,Urine Lt-Yellow (Lt Yel-Yel); Culture Indicated,Urine Not Indicated; Glucose, Urine Negative (Negative); Ketones,Urine Negative (Negative); Leukocyte Esterase,Urine Negative (Negative); Nitrite,Urine Negative (Negative); Protein,Urine Trace (Neg - Trace); RBC,Urine 2 /hpf (0-3); Squamous Epithelial Cell,Urine 4 /hpf (0-5); Urobilinogen,Urine Negative mg/dL (0.0-1.0); WBC,Urine 1 /hpf (0-5)
--- NOTE | 2024-06-15 19:20 | PC.CC ---
[facility] [address], [place] [phone] and [facility] [address] [place] [address] - Declined placement due to no beds available.
--- NOTE | 2024-06-15 19:23 | PC.CC ---
ED Conveyor System Operator expanded SNIF placement search.
--- NOTE | 2024-06-15 20:19 | PRELIM_ITS ---
CT scan of the head without intravenous contrast (axial sections with sagittal and coronal reformats) June 15, 2024 1855 hours Clinical history: Headache and high BP Comparison: No prior study is available for comparison. Findings: There is no evidence of intracranial hemorrhage, mass effect or midline shift. There are periventricular white matter hypodensities, compatible with chronic small vessel ischemia. There is mild volume loss. The calvarium is unremarkable. There is a heterogeneous hyperdense nodular lesion in the left parotid, measuring 13 X 8 mm. The mastoid air cells and the visualized paranasal sinuses are clear. Impression: No evidence of intracranial hemorrhage, mass effect or midline shift. Heterogeneous hyperdense nodular lesion in the left parotid, of indeterminate etiology. Recommend follow-up. Report Electronically Signed By: Danie Aguilar 06/15/2024 8:18:30 PM [EST]
[2024-06-16] VITALS (8 sets, daily range): BP systolic 110–187; BP diastolic 50–88; PULSE 61–70; RESP 16–94; TEMP 36.6–37.2; O2SAT 94–99
--- NOTE | 2024-06-16 07:26 | PD.EDADDENDU ---
Emergency Room Addendum Addendum Narrative: 0600: Care assumed from Dr. Jenkins, the previous shift emergency physician. Past medical, surgical, social and family history reviewed. Vitals and home medications reviewed. I will assume the care of the patient at this time, pending SNF placement. Please refer to the emergency department record for history and examination from initial visit.? Physical exam by me shows patient under no acute distress at this time. The patient was placed in ED observation care at 06/16/2024 at 0600 hours. The patient was placed in ED observation care pending SNF placement. The patients past medical history, social history, and family history were reviewed. The plan of care will include serial examinations. While in ED observation the patient will have access to water, food, and personal hygiene. If the patient takes home medication(s), they will be continued in ED observation. 1800: Patient was signed out to Dr. Dickson. Past medical, surgical, social and family history reviewed. Vitals and home medications reviewed. Results and treatment plan discussed. They will assume the care of the patient at this time and will follow the patient, pending SNF placement. ED observation care ended at 06/16/2024 at 1800 hours.
--- NOTE | 2024-06-16 08:40 | PC.CC ---
ASW, Montse spoke to Sofia at [facility] who reports that she can possibly take the patient with contingency that she gets [facility] and [employer] is able to provide auth. Sofia requested that our financial advisors work with the patient to help get her connected with [facility]. Per previous high school social studies tutor Brandee, met with patient, patient was unable to provide what hospice company she was connected to and reported they only came to the home once a month.
--- NOTE | 2024-06-16 09:16 | PC.CC ---
Addendum entered by Montse Gaytan 06/16/24 13:05: ASW made face to face contact with patient introduced self, role, and reason for visit. Patient appeared to be alert and oriented to self, location, and situation. Patient reports the hospice company but does not know the reason. ASW named a few companies to the patient and believes it was [facility]. ASW made telephone contact with Ammy with [facility] who reports the patient is connected to them and they have been providing services to her since summer and the last visit with the patient was on 06/11/2024. Ammy reports there were reports made to [facility] regarding the patient's living condition. Patient was also provided with 5 days of respite care during the time they were providing hospice to her. ASW provided updated information to the patient that SNF placement is still pending. Original Note: Patient's hospice company is [facility].
--- NOTE | 2024-06-16 10:50 | PC.NURSE ---
Assisted patient off bedside commode and onto [facility], patient refused brief, clean dry absorbent pad in place. New clean Periwick applied and attached to suction. Call light placed within reach. Large brown soft stool noted in bedside commode.
--- NOTE | 2024-06-16 10:55 | PC.NURSE ---
PATIENT ASSISTED TO BED SIDE COMMODE. PATIENT ABLE TO AMBULATE WITH ASSISTANCE. MEDIUM BOWEL MOVEMENT. WILL CONTINUE TO MONITOR PATIENT. NO COMPLAINT OF PAIN, CALL LIGHT WITHING REACH.
--- NOTE | 2024-06-16 16:08 | PC.NURSE ---
PATIENT RESTING WITH NO COMPLAINTS OF PAIN. PATIENT DENIES ANY CONCERNS AT TIME TIME.
--- NOTE | 2024-06-16 19:57 | PD.EDADDENDU ---
Emergency Room Addendum <Brad Franklin - Last Filed: 06/16/24 23:14> Addendum Narrative: 1800: Care assumed from the previous shift emergency physician. Past medical, surgical, social and family history reviewed. Vitals and home medications reviewed. I will assume the care of the patient at this time, pending SNF placement. Please refer to the emergency department record for history and examination from initial visit. Physical exam by me shows patient under no acute distress at this time. The patient was placed in ED observation care at 06/16/2024 at 1800 hours. The patient was placed in ED observation care pending SNF placement. The patients past medical history, social history, and family history were reviewed. The plan of care will include serial examinations. While in ED observation the patient will have access to water, food, and personal hygiene. If the patient takes home medication(s), they will be continued in ED observation. 0600: Patient was signed out to Dr. Dunne. Past medical, surgical, social and family history reviewed. Vitals and home medications reviewed. Results and treatment plan discussed. They will assume the care of the patient at this time and will follow the patient, pending SNF placement. ED observation care ended at 06/17/2024 at 0600 hours. <Ann Marie Dickson MD - Last Filed: 06/17/24 06:38> Addendum Narrative: 1800: Care assumed from the previous shift emergency physician. Past medical, surgical, social and family history reviewed. Vitals and home medications reviewed. I will assume the care of the patient at this time, pending SNF placement. 78-year-old female who came in [facility] disabled. While the patient was in the emergency department her albuterol nebulizer was restarted as needed, she was restarted on her hypertensive medication atenolol every morning. Please refer to the emergency department record for history and examination from initial visit. Physical exam by me shows patient under no acute distress at this time. The patient was placed in ED observation care at 06/16/2024 at 1800 hours. The patient was placed in ED observation care pending SNF placement. The patients past medical history, social history, and family history were reviewed. The plan of care will include serial examinations. While in ED observation the patient will have access to water, food, and personal hygiene. If the patient takes home medication(s), they will be continued in ED observation. 0600: Patient was signed out to Dr. Dunne. Past medical, surgical, social and family history reviewed. Vitals and home medications reviewed. Results and treatment plan discussed. They will assume the care of the patient at this time and will follow the patient, pending SNF placement. ED observation care ended at 06/17/2024 at 0600 hours. Attestation <Brad Franklin - Last Filed: 06/16/24 23:14> Attestation Scribe Attestation: I, Preeti Franklin, am scribing for and in the presence of Dr. Dickson. Provider Notation: Although this document has been carefully reviewed, there may still be some phonetic and other typographical errors. These errors are purely grammatical due to imperfections in the software program and should not be construed in any way to compromise the substance of the patient's medical care during this visit.
[2024-06-17] VITALS (13 sets, daily range): BP systolic 172–204; BP diastolic 38–92; PULSE 55–65; RESP 16–22; TEMP 36.4–37.1; O2SAT 93–97; BMI 29.9
--- NOTE | 2024-06-17 02:13 | PC.NURSE ---
Assisted pt to bedside commode. Changed pt bedding, assisted pt in perineal care. Standby assist for gurney transfer. Pt AAOx4. New purewick in place.
[2024-06-17] MEDS: atenoloL 25 MG TABLET 50 MG PO (03:20)
[2024-06-17] MEDS: Furosemide 40 MG TABLET PO (06:59)
--- NOTE | 2024-06-17 07:15 | PC.NURSE ---
Received report from Maria Teresa LUU and assumed care of patient. Patient lying in bed awake and asking for breakfast. Answers questions appropriately.
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
--- NOTE | 2024-06-17 08:21 | PC.NURSE ---
Breakfast tray given to patient.
--- NOTE | 2024-06-17 11:38 | EDNOTE_ITS ---
Emergency Room Addendum <Nay Sandoval - Last Filed: 06/17/24 11:39> Addendum Narrative: 0600: Care assumed from the previous shift emergency physician. Past medical, surgical, social and family history reviewed. Vitals and home medications reviewed. Results and treatment plan discussed. The patient was placed in ED observation care at 0606/17/24, pending SNF placement. Please refer to the emergency department record for history and examination.? While in ED observation the pt will have access to water, food, and personal hygiene. If the pt takes home medication(s), they will be continued in ED observation. <Chevy Dunne MD - Last Filed: 06/17/24 16:33> Addendum Narrative: 0600: Care assumed from the previous shift emergency physician. Past medical, surgical, social and family history reviewed. Vitals and home medications reviewed. Results and treatment plan discussed. The patient was plac ed in ED observation care at 0606/17/24, pending SNF placement. Please refer to the emergency department record for history and examination.? While in ED observation the pt will have access to water, food, and personal hygiene. If the pt takes home medication(s), they will be continued in ED observation. Patient is unable to care for self and social media marketing specialist been trying to place her. We restarted her medications and noted her blood pressure is high but she is asymptomatic with no chest pain no shortness of breath because they are having difficulty placing we feel it is best that she be in the hospital social media marketing specialist was contacted and then I spoke with Dr. Sherman who will admit the patient for hypertensive urgency unable to care for self and weakness.
--- NOTE | 2024-06-17 15:38 | PC.SS ---
SS follow up note; SS was contacted by Minerva from [facility], she informed SS that authorization is not approved, she reported the patient is seeking more of a placement issue, which is why authorization was not granted. SS was contacted by Marie from [facility], and she informed SS that she contacted patient's son Cal and he is agreeable to be the patient's POA, however the patient will need to agree to this arrangement. SS met with patient and patient is agreeable to have her son, Cal be her POA so the process can move faster, once agreed [facility] will provide POA Forms and meet with patient and Son and have their notary present, which with will help speed up the process and therefore patient's son could be able to make arrangements for patient to discharge to [facility] once patients financial situation is established. Marie will contact Notary and patient's son to arrange the encounter. Dr. Dunne informed SS that patient would have to be a social admit since the patient has been in the emergency department for three days. SS contacted of quality Dr. Fong and updated her on patient's situation, she informed SS to proceed with social admission. Dr. Dunne then contacted DR. Sherman, who will admit the patient. SS met with patient in informed her of admission, patient verbalized understanding.
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
[2024-06-17] MEDS: hydrALAZINE INJ 20 MG/ML VIAL 10 MG IV (18:10)
[2024-06-17] MEDS: INSULIN LISPRO (AdmeLOG) 1 UNIT/0.01 ML UNIT SC ×2 (18:11→22:37)
[2024-06-17] MEDS: Magnesium Sulfate 4 GM Ivpb 4 GM/50 ML BAG IV (18:22)
[2024-06-17] MEDS: Lisinopril 20 MG TABLET 40 MG PO (18:57)
--- NOTE | 2024-06-17 18:58 | PC.NURSE ---
Report called and given to April LUU
[2024-06-17] MEDS: LEVALBUTEROL RT 0.63 MG/3 ML NEBU INH (20:41)
[2024-06-17] MEDS: HEPARIN SOD INJ 5000 UNIT/ML VIAL SC (21:42)
--- NOTE | 2024-06-17 21:53 | PC.NURSE ---
Dr. Woods notified of patient having low heart rates. Patient while resting with eyes closed has been 44-50s. A bit ago while awake, patient heart rate went as low as 42, patient asymptomatic. stated to let him know if patient drops below 40 and/or is symptomatic.
[2024-06-18] VITALS (16 sets, daily range): BP systolic 154–186; BP diastolic 46–88; PULSE 47–79; RESP 12–95; TEMP 36.1–36.7; O2SAT 92–99
[2024-06-18] MEDS: ALBUTEROL/IPRATROPIUM (Duoneb) RT SOL 3 ML NEBU INH ×4 (01:11→18:00)
[2024-06-18] MEDS: hydrALAZINE INJ 20 MG/ML VIAL 10 MG IV (03:47)
[2024-06-18 05:57] LABS: Basophils % (Auto) 0 % (0-2.5); Eosinophils # (Auto) 0.4 Thou/mm3 (0.0-0.5); Eosinophils % (Auto) 3 % (0-10); Hematocrit 42.7 % (36.0-46.0); Hemoglobin 13.8 g/dL (12.0-16.0); Immature Granulocytes % (Auto) 0 % (0-0); Immature Granulocytes Auto 0.04 Thou/mm3 (0.00-0.00); Lymphocytes # (Auto) 1.7 Thou/mm3 (1.0-4.8); Lymphocytes % (Auto) 15 % (10-50); Mean Corpuscular HGB Conc 32.3 g/dl (31.0-37.0); Mean Corpuscular Hemoglobin 28.8 pg (25.0-35.0); Mean Corpuscular Volume 89 fL (80-100); Monocytes # (Auto) 0.9 Thou/mm3 (0.0-0.8); Monocytes % (Auto) 8 % (0-12); Neutrophils # (Auto) 8.5 Thou/mm3 (1.8-7.7); Neutrophils % (Auto) 73 % (37-80); Nucleated Red Blood Cell % 0 /100 WBC (0); Platelet Count 246 Thou/mm3 (140-440); RDW Standard Deviation 43.3 fL (36.4-46.3); Red Blood Count 4.79 Miln/mm3 (4.00-5.20); White Blood Count 11.6 Thou/mm3 (3.6-11.0)
[2024-06-18 06:44] LABS: Alanine Aminotransferase 10 U/L (10-49); Albumin, Serum 3.6 gm/dL (3.4-4.8); Albumin/Globulin Ratio 1.3 (1.2-2.2); Alkaline Phosphatase 69 U/L (46-116); Anion Gap 8 (7-16); Aspartate Amino Transferase 13 U/L (0-34); BUN/Creatinine Ratio 20 Ratio (12-20); Bilirubin,Total 0.7 mg/dL (0.3-1.2); Blood Urea Nitrogen 18 mg/dL (9-23); Calcium 9.1 mg/dL (8.3-10.6); Calcium (Corrected) 9.4 mg/dL (8.5-10.1); Carbon Dioxide 29.5 mMol/L (20.0-31.0); Chloride 103 mMol/L (98-107); Creatinine (Component) 0.9 mg/dL (0.6-1.3); Estimated Creatinine Clearance 52.4 mL/min (>60); Globulin 2.7 gm/dL (2.3-3.5); Glucose 155 mg/dL (74-106); Magnesium 2.3 mg/dL (1.6-2.6); Osmolality,Calculated 284 (275-295); Potassium 4.1 mMol/L (3.4-5.1); Sodium 140 mMol/L (136-145); Total Protein 6.3 gm/dL (5.7-8.2); eGFR > 60 See Note
[2024-06-18 06:51] LABS: Glucose Estimated Average 197 mg/dL (80-131); Hemoglobin A1C 8.5 % Hgb (4.8-6.0)
[2024-06-18] MEDS: INSULIN LISPRO (AdmeLOG) 1 UNIT/0.01 ML UNIT SC ×4 (08:13→20:39)
[2024-06-18] MEDS: Lisinopril 20 MG TABLET 40 MG PO (08:15)
[2024-06-18] MEDS: SENNA TABLET 1 TAB PO (08:15)
[2024-06-18] MEDS: HEPARIN SOD INJ 5000 UNIT/ML VIAL SC ×2 (08:16→20:40)
[2024-06-18] MEDS: atenoloL 25 MG TABLET 50 MG PO (11:34)
[2024-06-18] MEDS: ASPIRIN EC 81 MG TABEC PO (11:34)
--- NOTE | 2024-06-18 13:42 | PC.SS ---
SS follow up note; SS was contacted by Marie from [facility] reporting that she will contact patient's son and Marie rizo reported that once patient's social security check arrives on 06/21 they are able to take patient with $1,700. SS will contact patient's son to update him. Clarissa infomred SS she would contact SS once sallie contacts her.
--- NOTE | 2024-06-18 14:22 | PC.SS ---
SS follow up note; Pending Pathology report.
--- NOTE | 2024-06-18 14:24 | ESPR_ITS ---
<Statement entered by Martha Lantigua MD - 06/19/24 07:35> Patient was seen and examined by me personally. I have directly supervised and reviewed documentation by the team resident and agree with its findings with any exceptions or additional findings as below. Plan of care was discussed with the attending, Dr. Ngo. Martha Lantigua, PGY-2 Documentation for date of: 06/18/24 Subjective Subjective Interval history: 06/18/2024: No acute overnight events to report. Patient seen and examined in hospital and remains at current baseline with no concerning symptoms noted such as chest pain, shortness of breath, abdominal pain, dizziness or new headaches. Patient's blood pressure is under much better control at this time. Patient does have history of atrial fibrillation with a CHADVASC score of 7 and could benefit from anticoagulation therapy; moreover, will have discussions with patient and decision maker in the coming days. Per director social, patient would like to return to the same fpc and she is able to make that decision based off her current mental status (alert oriented x 3) but we will have a conversation with her primary decision-maker which is her son. Exam Vital Signs Temp Pulse Resp BP Pulse Ox O2 Del Method O2 Flow Rate 97.0 F 61 20 159/69 H 99 Nasal Cannula 1 06/18/24 12:00 06/18/24 12:53 06/18/24 12:53 06/18/24 12:00 06/18/24 12:53 06/18/24 12:00 06/18/24 12:00 Narrative Exam Physical Exam: GENERAL: Awake, answering questions appropriately, appears younger than stated age, morbidly obese. HEENT: NC/AT. Moist mucosa. PERRLA/EOMI. CARDIO: Heart RRR, no obvious murmurs, no JVD. PULM: No coughing or visible SOB. Mild wheezing noted bilaterally, otherwise Lungs CTA B/L. GI: Abdomen soft, NT/ND, +BS. SKIN/MSK/EXT: No wounds/discoloration/rashes/edema/amputations. +Pedal pulses present B/L. NEURO: Oriented x3, Moves extremities x4, no focal neurological deficits noted. Objective Labs 06/19/24 05:06 06/19/24 05:06 Labs: Laboratory Results - last 24 hr 06/18/24 05:14 WBC 11.6 H RBC 4.79 Hgb 13.8 Hct 42.7 MCV 89 MCH 28.8 MCHC 32.3 RDW Std Deviation 43.3 Plt Count 246 Neut % (Auto) 73 Lymph % (Auto) 15 [place] % (Auto) 8 Eos % (Auto) 3 Baso % (Auto) 0 Neut # (Auto) 8.5 H Lymph # (Auto) 1.7 [place] # (Auto) 0.9 H Eos # (Auto) 0.4 Baso # (Auto) 0.0 Immature Gran # (Auto) 0.04 H Absolute Nucleated RBC 0.00 Immature Gran % 0 Nucleated RBC % 0 PT 11.0 INR 1.0 Sodium 140 Potassium 4.1 Chloride 103 Carbon Dioxide 29.5 Anion Gap 8 BUN 18 Creatinine 0.9 Estim Creat Clear Calc 52.4 L eGFR > 60 BUN/Creatinine Ratio [address] Glu mg/dL 197 H Hemoglobin A1c 8.5 H Calculated Osmolality 284 Calcium 9.1 Corrected Calcium 9.4 Phosphorus 4.0 Magnesium 2.3 Total Bilirubin 0.7 AST 13 ALT 10 Alkaline Phosphatase 69 Total Protein 6.3 Albumin 3.6 Globulin 2.7 Albumin/Globulin Ratio 1.3 Quality Measures Quality Measures none Advance care planning discussed with:: patient Assessment & Plan Assessment Current Active Medications: Generic Name Dose Route Start Last Admin Trade Name Freq PRN Reason Stop Dose Admin Acetaminophen 650 mg 06/17/24 16:59 Acetaminophen 325 Mg Tablet PO 07/17/24 16:58 Q6H PRN Pain 1-3 and/or fever >100.1 Albuterol/Ipratropium 3 ml 06/17/24 18:00 06/18/24 12:51 Albuterol/Ipratropium (Duoneb) Rt Laura 3 Ml Nebu INH 07/17/24 17:59 3 ml Q6HRRT DOMINGO Administration Aspirin 81 mg 06/18/24 09:00 06/18/24 11:34 Aspirin Ec 81 Mg Tabec PO 07/18/24 08:59 81 mg QDAY DOMINGO Administration Atenolol 50 mg 06/18/24 11:15 06/18/24 11:34 Atenolol 25 Mg Tablet PO 07/18/24 11:14 50 mg QDAY DOMINGO Administration Atorvastatin Calcium 40 mg 06/18/24 21:00 Atorvastatin Calcium 20 Mg Tablet PO 07/18/24 20:59 QPM DOMINGO Dextrose 25 ml 06/17/24 16:59 Dextrose 50%-Water Inj 50 Ml Syringe IV 07/17/24 16:58 Q15MIN PRN BG 50-70 responsive npo pt Dextrose 50 ml 06/17/24 16:59 Dextrose 50%-Water Inj 50 Ml Syringe IV 07/17/24 16:58 Q15MIN PRN BG <50 OR BG <70 & pt unresponsive Glucagon 1 mg 06/17/24 16:59 Glucagon Inj 1 Mg Vial IM Q15MIN PRN BG <70, and no IV access Heparin Sodium (Porcine) 5,000 unit 06/17/24 21:00 06/18/24 08:16 Heparin Sod Inj 5000 Unit/Ml Vial SC 07/01/24 20:59 5,000 unit Q12HR DOMINGO Administration Hydralazine HCl 10 mg 06/17/24 18:45 06/18/24 03:47 Hydralazine Inj 20 Mg/Ml Vial IV 07/17/24 18:44 10 mg Q4HR PRN Administration Systolic >180 Insulin Human Lispro 0 unit 06/17/24 22:30 06/18/24 11:38 Insulin Lispro (Admelog) 1 Unit/0.01 Ml Unit SC 07/17/24 22:29 3 unit ACHS DOMINGO Administration Protocol Lisinopril 40 mg 06/18/24 09:00 06/18/24 08:15 Lisinopril 20 Mg Tablet PO 07/18/24 08:59 40 mg QDAY DOMINGO Administration Ondansetron HCl 4 mg 06/17/24 16:59 Ondansetron Inj 2 Mg/Ml Inj 2 Ml IV 07/17/24 16:58 Q6H PRN NAUSEA OR VOMITING Protocol Tiotropium [place] [ 2 ea 06/17/24 17:15 Spiriva Respimat] 1. INH 07/17/24 17:14 25 Mcg/Actua Q24H DOMINGO Protocol Sennosides 1 tab 06/18/24 09:00 06/18/24 08:15 Senna Tablet PO 07/18/24 08:59 1 tab QDAY DOMINGO Administration Protocol Plan 78-year-old female with past medical history of hospice care, atrial fibrillation, COPD on 2 L home oxygen, HFpEF, CAD, CVA, type 2 diabetes presenting to the ED today secondary to social issue will be admitted for management of hypertensive urgency and for SNF placement. #Hypertensive urgency Patient presenting to the ED hypertensive; moreover, patient is on antihypertensive medications at home Per patient, patient takes atenolol 50 mg p.o. 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 Per EMS patient's living conditions were very bad and there was feces all around the patient On exam, the patient has poor hygiene and distinct smell of urine and feces is noted Per ED note the patient is also on hospice and hospice used to visit the patient once a month at that skilled nursing Plan: visitor services information assistant to help the patient with the new SNF placement #Atrial fibrillation 7?points CHADVAsc Score Per med rec, patient does not have any anticoagulation medication EKG currently shows normal sinus rhythm with left ventricular hypertrophy and nonspecific ST changes in lateral leads Plan: Counseled patient on risks/benefits of starting anticoagulation therapy Patient and primary decision maker (son) will make decision #COPD on 2 L home oxygen Patient has longstanding history of COPD with 2 L of home oxygen Per patient, patient has been under secondhand smoke but denies ever smoking herself Patient is on Spiriva and albuterol inhalers at home On exam, patient has excessive wheezing noted bilaterally Plan: DuoNebs every 4 hours Continue home inhalers Continue supplemental oxygenation Pulse ox #Type 2 diabetes, [id number] Patient states that she takes oral medication for diabetes, unsure at this time Per med rec, there are no diabetic medications listed Last A1c 7.7 on 02/10/2023 A1c of 8.5 on 06/18/2024 Plan: Sliding scale insulin Will consider oral agent on discharge #HFpEF #CAD #History of CVA Chronic medical condition Pending official med rec Plan: Restarted statin and aspirin Hospital Management: Lines: PIV Diet: Cardiac Bowel: Senna GI prophylaxis: Not needed DVT prophylaxis: Heparin subcu Dispo: Pending hypertensive urgency management and SNF placement Code: Full Patient seen and assessed with attending Dr. Ngo and senior resident Dr. Remi Palencia, PGY-1 Attending Provider Attestation/Addendum I reviewed labs, imaging, EKG, home medications and prior available records. Face to face evaluation was performed by me. I have personally examined the patient and discussed assessment and plan with the IM team. I reviewed the resident note and agree with the plan with exceptions as below. Chronic hypoxic respiratory failure COPD History of tobacco use Hypertensive urgency History of CVA Continue DuoNebs Started lisinopril and atenolol. Monitor BP Continue aspirin and atorvastatin Ordered PT evaluation: Recommended SNF however the patient declined. Discussed with child protective services social worker
--- NOTE | 2024-06-18 14:59 | PC.SS ---
SS follow up note; SS was informed by pt Jesika that patient refused PT evaluation and patient disclosed that patients' resident care manager rn would be visiting patient today. SS met with patient at bedside as well with Director of Care integrations, Briana. Patient disclosed that her caregiver, Hetal, would be visiting. Hetal is expecting tor bring a notary to facilitate the establishment of (POA) for the patient. Briana informed the patient that, she or SS would be present before the patient signs any legal document and that SS would contact APS to see if there is a restraining order in place. SS contacted APS however did not answer, SS left Voicemail with SS contact information.
--- NOTE | 2024-06-18 15:30 | PC.SS ---
SS follow up; SS contacted Hetal however SS left Voicemail with contact information.
--- NOTE | 2024-06-18 16:22 | PC.SS ---
SS follow up note; SS contacted APS and spoke to Jaclyn, SS updated her and updated her in regards to Hetal having patient sign POA forms. Jaclyn reported that there is no information provided that there is a Restraining order in place and that the case has not yet been reviewed. Jaclyn could not provide enough information to SS. SS will stand by for further needs.
[2024-06-18] MEDS: ALBUTEROL INH 8 GM 2 PUFF INH ×2 (18:00→21:18)
[2024-06-18] MEDS: ATORVASTATIN CALCIUM 20 MG TABLET 40 MG PO (20:35)
[2024-06-19] VITALS (16 sets, daily range): BP systolic 157–189; BP diastolic 56–75; PULSE 51–71; RESP 16–95; TEMP 36.2–37.3; O2SAT 93–99; BMI 13.0
[2024-06-19 05:56] LABS: Basophils % (Auto) 0 % (0-2.5); Eosinophils # (Auto) 0.4 Thou/mm3 (0.0-0.5); Eosinophils % (Auto) 4 % (0-10); Hematocrit 41.7 % (36.0-46.0); Hemoglobin 13.2 g/dL (12.0-16.0); Immature Granulocytes % (Auto) 0 % (0-0); Immature Granulocytes Auto 0.04 Thou/mm3 (0.00-0.00); Lymphocytes # (Auto) 1.8 Thou/mm3 (1.0-4.8); Lymphocytes % (Auto) 17 % (10-50); Mean Corpuscular HGB Conc 31.7 g/dl (31.0-37.0); Mean Corpuscular Hemoglobin 28.5 pg (25.0-35.0); Mean Corpuscular Volume 90 fL (80-100); Monocytes # (Auto) 0.9 Thou/mm3 (0.0-0.8); Monocytes % (Auto) 8 % (0-12); Neutrophils # (Auto) 7.4 Thou/mm3 (1.8-7.7); Neutrophils % (Auto) 70 % (37-80); Nucleated Red Blood Cell % 0 /100 WBC (0); Platelet Count 267 Thou/mm3 (140-440); RDW Standard Deviation 43.9 fL (36.4-46.3); Red Blood Count 4.63 Miln/mm3 (4.00-5.20); White Blood Count 10.5 Thou/mm3 (3.6-11.0)
[2024-06-19 06:36] LABS: Alanine Aminotransferase 10 U/L (10-49); Albumin, Serum 3.6 gm/dL (3.4-4.8); Albumin/Globulin Ratio 1.4 (1.2-2.2); Alkaline Phosphatase 64 U/L (46-116); Anion Gap 8 (7-16); Aspartate Amino Transferase 13 U/L (0-34); BUN/Creatinine Ratio 18 Ratio (12-20); Bilirubin,Total 0.9 mg/dL (0.3-1.2); Blood Urea Nitrogen 16 mg/dL (9-23); Calcium 8.9 mg/dL (8.3-10.6); Calcium (Corrected) 9.2 mg/dL (8.5-10.1); Carbon Dioxide 28.9 mMol/L (20.0-31.0); Chloride 102 mMol/L (98-107); Creatinine (Component) 0.9 mg/dL (0.6-1.3); Estimated Creatinine Clearance 68.5 mL/min (>60); Globulin 2.6 gm/dL (2.3-3.5); Glucose 138 mg/dL (74-106); Osmolality,Calculated 280 (275-295); Potassium 4.5 mMol/L (3.4-5.1); Sodium 139 mMol/L (136-145); Total Protein 6.2 gm/dL (5.7-8.2); eGFR > 60 See Note
[2024-06-19] MEDS: ALBUTEROL/IPRATROPIUM (Duoneb) RT SOL 3 ML NEBU INH ×5 (06:42→23:22)
[2024-06-19] MEDS: INSULIN LISPRO (AdmeLOG) 1 UNIT/0.01 ML UNIT SC ×4 (07:39→21:03)
--- NOTE | 2024-06-19 09:46 | PC.SS ---
Addendum entered by Mili Saldaña 06/19/24 15:47: SS follow up note; SS contacted Tashia from [facility] in regards to the reason why patient was needing hospice services. Patient started services on September 21 2023. COPD is her primary diagnosis and atrial Fibrillation and heart disease. SS will meet with patient to see if patient would like to continue hospice services. SS will stand by for further needs. Addendum entered by Mili Saldaña 06/19/24 13:29: SS follow up note; SS received a call from Jaclyn from [facility], requesting an update on patient. Jaclyn reported she would like for SS to contact her once patient discharges to [facility] or if the discharge plan changes she would like to know the disposition status, SS verbalized understanding. Addendum entered by Mili Saldaña 06/19/24 12:04: Mili EDGAR and Hanna ALVES met with patient at bedside to discuss discharge plan. SS indicated to the patient that it is not safe for her to discharge back to caregiver, Hetal. The patient expressed understanding and agreed to be discharged to [facility]. SS contacted patient's son, Cal, who reported that he would be arriving with a notary between 2:00-3:00PM, to sign the documents granting him power of workers compensation defense attorney. Cal also informed SS that once he has power of workers compensation defense attorney, he will go to the post office, and once the check arrives, he will lara it to facilitate the patient's discharge to [facility]. Additionally, web content & social media manager received a call from Tashia Estrella [facility] POUL[employer]ARN MANAGER, who informed SS that she had contacted [facility], and informed that the patient's caregiver has been attempting to obtain POA from the patient. [facility] notified Tashia that they would investigate further more into the case. Tashia informed SS that she would be visiting patient tomorrow. Pending PT evaluation, patient would benefit from SNF in order to be able to improve her ambulation. Once PT notes are in SS will again attempt t obtain authorization from [employer] if possible. Addendum entered by Mili Saldaña 06/19/24 09:51: SS follow up note; SS attempted to contact Hetal however did not answer, SS left a Voicemail with SS contact number. Original Note: SS contacted [place]'s post office and they informed SS that patient's son could not do anything without any legal document, that's the only way of moving forward with the change of address.
[2024-06-19] MEDS: HEPARIN SOD INJ 5000 UNIT/ML VIAL SC (09:55)
[2024-06-19] MEDS: SENNA TABLET 1 TAB PO (09:56)
[2024-06-19] MEDS: ASPIRIN EC 81 MG TABEC PO (09:56)
[2024-06-19] MEDS: Lisinopril 20 MG TABLET 40 MG PO (09:56)
[2024-06-19] MEDS: atenoloL 25 MG TABLET 50 MG PO (09:56)
--- NOTE | 2024-06-19 11:19 | ESPR_ITS ---
<Statement entered by Martha Lantigua MD - 06/20/24 07:52> Patient was seen and examined by me personally. I have directly supervised and reviewed documentation by the team resident and agree with its findings with any exceptions or additional findings as below. Plan of care was discussed with the attending, Dr. Ngo. Patient is pending placement into assisted living facility. She is awaiting a check to be received in the mail around 06/21 so she can pay for it. Son is looking out for the check in the mail. Martha Lantigua, PGY-2 Documentation for date of: 06/19/24 Subjective Subjective Interval history: 06/19/2024: No acute overnight events to report. Patient seen and examined in hospital bed remains at current baseline with no concerning symptoms such as chest pain, shortness of breath, abdominal pain or new headaches/dizziness. Patient refused to work with physical therapy yesterday but upon counseling she has agreed to retry as she will need to be able to ambulate prior to placement at [facility]. Patient's son was contacted and he is adamant that the patient needs to go to [facility] and that it would not be appropriate for her to go back and stay with her friend Hetal. Patient's son is working on power of deputy commonwealth's attorney paperwork. director of food and nutrition services is following the case closely and will continue to update regarding placement. Exam Vital Signs Temp Pulse Resp BP Pulse Ox O2 Del Method O2 Flow Rate 97.8 F 63 22 H 173/67 H 94 L Room Air 2 06/19/24 08:00 06/19/24 09:56 06/19/24 08:00 06/19/24 09:56 06/19/24 08:00 06/19/24 08:00 06/19/24 08:00 Narrative Exam Physical Exam: GENERAL: Awake, answering questions appropriately, appears younger than stated age, morbidly obese. HEENT: NC/AT. Moist mucosa. PERRLA/EOMI. CARDIO: Heart RRR, no obvious murmurs, no JVD. PULM: No coughing or visible SOB. Mild wheezing noted bilaterally, otherwise Lungs CTA B/L. GI: Abdomen soft, NT/ND, +BS. SKIN/MSK/EXT: No wounds/discoloration/rashes/edema/amputations. +Pedal pulses present B/L. NEURO: Oriented x3, Moves extremities x4, no focal neurological deficits noted. Objective Labs 06/20/24 05:05 06/20/24 05:05 Labs: Laboratory Results - last 24 hr 06/19/24 05:06 WBC 10.5 RBC 4.63 Hgb 13.2 Hct 41.7 MCV 90 MCH 28.5 MCHC 31.7 RDW Std Deviation 43.9 Plt Count 267 Neut % (Auto) 70 Lymph % (Auto) 17 [place] % (Auto) 8 Eos % (Auto) 4 Baso % (Auto) 0 Neut # (Auto) 7.4 Lymph # (Auto) 1.8 [place] # (Auto) 0.9 H Eos # (Auto) 0.4 Baso # (Auto) 0.0 Immature Gran # (Auto) 0.04 H Absolute Nucleated RBC 0.00 Immature Gran % 0 Nucleated RBC % 0 Sodium 139 Potassium 4.5 Chloride 102 Carbon Dioxide 28.9 Anion Gap 8 BUN 16 Creatinine 0.9 Estim Creat Clear Calc 68.5 eGFR > 60 BUN/Creatinine Ratio 18 Glucose 138 H Calculated Osmolality 280 Calcium 8.9 Corrected Calcium 9.2 Total Bilirubin 0.9 AST 13 ALT 10 Alkaline Phosphatase 64 Total Protein 6.2 Albumin 3.6 Globulin 2.6 Albumin/Globulin Ratio 1.4 Quality Measures Quality Measures none Advance care planning discussed with:: patient and child (Son; Cal Rosa) Assessment & Plan Assessment Current Active Medications: Generic Name Dose Route Start Last Admin Trade Name Freq PRN Reason Stop Dose Admin Acetaminophen 650 mg 06/17/24 16:59 Acetaminophen 325 Mg Tablet PO 07/17/24 16:58 Q6H PRN Pain 1-3 and/or fever >100.1 Albuterol 2 puff 06/18/24 17:13 06/18/24 21:18 Albuterol Inh 8 Gm INH 07/18/24 17:12 2 puff Q4H PRN Administration shortness of breath or wheezing Albuterol/Ipratropium 3 ml 06/17/24 18:00 06/19/24 06:42 Albuterol/Ipratropium (Duoneb) Rt Laura 3 Ml Nebu INH 07/17/24 17:59 3 ml Q6HRRT DOMINGO Administration Apixaban 5 mg 06/19/24 21:00 Apixaban 2.5 Mg Tablet PO 07/19/24 20:59 BID DOMINGO Aspirin 81 mg 06/18/24 09:00 06/19/24 09:56 Aspirin Ec 81 Mg Tabec PO 07/18/24 08:59 81 mg QDAY DOMINGO Administration Atenolol 50 mg 06/18/24 11:15 06/19/24 09:56 Atenolol 25 Mg Tablet PO 07/18/24 11:14 50 mg QDAY DOMINGO Administration Atorvastatin Calcium 40 mg 06/18/24 21:00 06/18/24 20:35 Atorvastatin Calcium 20 Mg Tablet PO 07/18/24 20:59 40 mg QPM DOMINGO Administration Dextrose 25 ml 06/17/24 16:59 Dextrose 50%-Water Inj 50 Ml Syringe IV 07/17/24 16:58 Q15MIN PRN BG 50-70 responsive npo pt Dextrose 50 ml 06/17/24 16:59 Dextrose 50%-Water Inj 50 Ml Syringe IV 07/17/24 16:58 Q15MIN PRN BG <50 OR BG <70 & pt unresponsive Glucagon 1 mg 06/17/24 16:59 Glucagon Inj 1 Mg Vial IM Q15MIN PRN BG <70, and no IV access Hydralazine HCl 10 mg 06/17/24 18:45 06/18/24 03:47 Hydralazine Inj 20 Mg/Ml Vial IV 07/17/24 18:44 10 mg Q4HR PRN Administration Systolic >180 Insulin Human Lispro 0 unit 06/17/24 22:30 06/19/24 07:39 Insulin Lispro (Admelog) 1 Unit/0.01 Ml Unit SC 07/17/24 22:29 2 unit ACHS DOMINGO Administration Protocol Lisinopril 40 mg 06/18/24 09:00 06/19/24 09:56 Lisinopril 20 Mg Tablet PO 07/18/24 08:59 40 mg QDAY DOMINGO Administration Ondansetron HCl 4 mg 06/17/24 16:59 Ondansetron Inj 2 Mg/Ml Inj 2 Ml IV 07/17/24 16:58 Q6H PRN NAUSEA OR VOMITING Protocol Tiotropium [place] [ 2 ea 06/17/24 17:15 Spiriva Respimat] 1. INH 07/17/24 17:14 25 Mcg/Actua Q24H DOMINGO Protocol Sennosides 1 tab 06/18/24 09:00 06/19/24 09:56 Senna Tablet PO 07/18/24 08:59 1 tab QDAY [facility] Administration Protocol Sitagliptin Phosphate 100 mg 06/20/24 09:00 Sitagliptin Phosphate 50 Mg Tablet PO 07/20/24 08:59 QDAY DOMINGO Plan 78-year-old female with past medical history of hospice care, atrial fibrillation, COPD on 2 L home oxygen, HFpEF, CAD, CVA, type 2 diabetes presenting to the ED today secondary to social issue will be admitted for management of hypertensive urgency and for SNF placement. #Hypertensive urgency Patient presenting to the ED hypertensive; moreover, patient is on antihypertensive medications at home Per patient, patient takes atenolol 50 mg p.o. 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 Per EMS patient's living conditions were very bad and there was feces all around the patient On exam, the patient has poor hygiene and distinct smell of urine and feces is noted Per ED note the patient is also on hospice and hospice used to visit the patient once a month at that penitentiary Plan: director of food and nutrition services to help the patient with the new SNF placement Patient's son, Cal Rosa is going to be power of deputy commonwealth's attorney pending paperwork Patient will be discharged to [facility] #Atrial fibrillation 7?points CHADVAsc Score Per med rec, patient does not have any anticoagulation medication EKG currently shows normal sinus rhythm with left ventricular hypertrophy and nonspecific ST changes in lateral leads Plan: Started patient on Eliquis 5 mg p.o. twice daily #COPD on 2 L home oxygen Patient has longstanding history of COPD with 2 L of home oxygen Per patient, patient has been under secondhand smoke but denies ever smoking herself Patient is on Spiriva and albuterol inhalers at home On exam, patient has excessive wheezing noted bilaterally Plan: DuoNebs every 4 hours Continue home inhalers Continue supplemental oxygenation Pulse ox #Type 2 diabetes, [id number] Patient states that she takes oral medication for diabetes, unsure at this time Per med rec, there are no diabetic medications listed Last A1c 7.7 on 02/10/2023 A1c of 8.5 on 06/18/2024 Plan: Sliding scale insulin We will discharge the patient on Januvia 100 mg p.o. daily and counseled the patient to ask PCP about GLP-1 medications #HFpEF #CAD #History of CVA Chronic medical condition Pending official med rec Plan: Restarted statin and aspirin Hospital Management: Lines: PIV Diet: Cardiac Bowel: Senna GI prophylaxis: Not needed DVT prophylaxis: Heparin subcu Dispo: Pending hypertensive urgency management and SNF placement Code: Full Patient seen and assessed with attending Dr. Ngo and senior resident Dr. Remi Palencia, PGY-1 Attending Provider Attestation/Addendum I reviewed labs, imaging, EKG, home medications and prior available records. Face to face evaluation was performed by me. I have personally examined the patient and discussed assessment and plan with the IM team. I reviewed the resident note and agree with the plan with exceptions as below. Chronic hypoxic respiratory failure COPD History of tobacco use Hypertensive urgency History of CVA Chronic A-fib Type 2 diabetes mellitus Continue DuoNebs Started lisinopril and atenolol. Monitor BP Continue aspirin and atorvastatin Januvia for type 2 diabetes mellitus Started Eliquis Ordered PT evaluation: Working on assisted living facility placement. Pending receiving her payment on 06/21
--- NOTE | 2024-06-19 15:37 | PC.SS ---
Addendum entered by Mili Saldaña 06/19/24 16:18: SS met with patient at bedside in regards to hospice services and inquired if she would like to continue with hospice services. SS provided an explanation of what hospice is, however the patient indicated that she was unaware of the specifics of what hospice was and expressed the desire to to be able to continue with medical treatment and also stated her willingness to participate in physical therapy to be able to get stronger and be able to ambulate better. SS informed her that she could engage in PT Post-Discharge, with a Home Health agency providing follow up care. Patient agreeable to the plan and indicated that she was unfamiliar with hospice services, expressing the desire to discontinue hospice services with [facility]. SS attempted to contact Tashia ALVES to relay this information, however did not answer, SS left Voicemail with contact number. Original Note: SS follow up note; SS at bedside with Marie from [facility] and patient, son Cal, patient designated her son, Cal as power of clay dry press mixer operator. SS placed copy of power of clay dry press mixer operator in patient's chart.
[2024-06-19] MEDS: APIXABAN 2.5 MG TABLET 5 MG PO (21:01)
[2024-06-19] MEDS: hydrALAZINE INJ 20 MG/ML VIAL 10 MG IV (21:02)
[2024-06-19] MEDS: ATORVASTATIN CALCIUM 20 MG TABLET 40 MG PO (21:02)
[2024-06-19] MEDS: ALBUTEROL INH 8 GM 2 PUFF INH (21:10)
[2024-06-19] MEDS: NIFEdipine XL 30 MG TABCR PO (23:25)
[2024-06-19] MEDS: BENZONATATE 100 MG CAPSULE PO (23:25)
[2024-06-20] VITALS (15 sets, daily range): BP systolic 152–171; BP diastolic 41–80; PULSE 58–87; RESP 17–97; TEMP 36.3–37.4; O2SAT 92–100; BMI 47.2
[2024-06-20] MEDS: Magnesium Sulfate 2 GM Ivpb 2 GM/50 ML BAG IV (01:30)
[2024-06-20] MEDS: BUDESONIDE RT 0.5 MG/2 ML NEBU 1 MG INH ×2 (02:48→07:08)
[2024-06-20] MEDS: ALBUTEROL/IPRATROPIUM (Duoneb) RT SOL 3 ML NEBU INH ×6 (02:49→22:11)
[2024-06-20 05:55] LABS: Basophils % (Auto) 0 % (0-2.5); Eosinophils # (Auto) 0.5 Thou/mm3 (0.0-0.5); Eosinophils % (Auto) 4 % (0-10); Hematocrit 43.1 % (36.0-46.0); Hemoglobin 13.7 g/dL (12.0-16.0); Immature Granulocytes % (Auto) 0 % (0-0); Immature Granulocytes Auto 0.04 Thou/mm3 (0.00-0.00); Lymphocytes # (Auto) 1.6 Thou/mm3 (1.0-4.8); Lymphocytes % (Auto) 13 % (10-50); Mean Corpuscular HGB Conc 31.8 g/dl (31.0-37.0); Mean Corpuscular Hemoglobin 28.8 pg (25.0-35.0); Mean Corpuscular Volume 91 fL (80-100); Monocytes # (Auto) 1.1 Thou/mm3 (0.0-0.8); Monocytes % (Auto) 8 % (0-12); Neutrophils # (Auto) 9.7 Thou/mm3 (1.8-7.7); Neutrophils % (Auto) 75 % (37-80); Nucleated Red Blood Cell % 0 /100 WBC (0); Platelet Count 281 Thou/mm3 (140-440); RDW Standard Deviation 43.7 fL (36.4-46.3); Red Blood Count 4.76 Miln/mm3 (4.00-5.20); White Blood Count 12.9 Thou/mm3 (3.6-11.0)
[2024-06-20 06:56] LABS: Alanine Aminotransferase 11 U/L (10-49); Albumin, Serum 3.8 gm/dL (3.4-4.8); Albumin/Globulin Ratio 1.4 (1.2-2.2); Alkaline Phosphatase 67 U/L (46-116); Anion Gap 8 (7-16); Aspartate Amino Transferase 10 U/L (0-34); BUN/Creatinine Ratio 16 Ratio (12-20); Bilirubin,Total 1.1 mg/dL (0.3-1.2); Blood Urea Nitrogen 16 mg/dL (9-23); Calcium 9.2 mg/dL (8.3-10.6); Calcium (Corrected) 9.4 mg/dL (8.5-10.1); Carbon Dioxide 30.6 mMol/L (20.0-31.0); Chloride 100 mMol/L (98-107); Estimated Creatinine Clearance 60.7 mL/min (>60); Globulin 2.7 gm/dL (2.3-3.5); Glucose 149 mg/dL (74-106); Osmolality,Calculated 281 (275-295); Potassium 4.7 mMol/L (3.4-5.1); Sodium 139 mMol/L (136-145); Total Protein 6.5 gm/dL (5.7-8.2); eGFR 58 See Note
[2024-06-20] MEDS: INSULIN LISPRO (AdmeLOG) 1 UNIT/0.01 ML UNIT SC ×4 (08:04→20:48)
[2024-06-20] MEDS: APIXABAN 2.5 MG TABLET 5 MG PO ×2 (08:22→20:38)
[2024-06-20] MEDS: SENNA TABLET 1 TAB PO (08:22)
[2024-06-20] MEDS: sitaGLIPtin PHOSPHATE 50 MG TABLET 100 MG PO (08:22)
[2024-06-20] MEDS: ASPIRIN EC 81 MG TABEC PO (08:22)
[2024-06-20] MEDS: predniSONE 20 MG TABLET 40 MG PO (09:24)
[2024-06-20] MEDS: Lisinopril 20 MG TABLET 40 MG PO (09:25)
--- NOTE | 2024-06-20 13:09 | PC.SS ---
Addendum entered by Mili Saldaña 06/20/24 13:31: follow up note; SS received a call from patient's son Cal, expressing his desire to have patient continue to purse hospice services. SS informed Cal that SS had met with patient yesterday and patient had reported to SS that she did not want to purse with hospice services. Patient's son reported he has spoke to his mother and she was agreeable to discharge to [facility] on hospice. SS met with patient at bedside to confirm that's what she wanted while patients son, Cal on the phone and patient stated she would like to continue with hospice services. SS will contact Team B to input hospice order. Original Note: SS was contacted by Marie in regards to Hetal reaching out to patient's son, Cal and reported that patient's $1800 check had arrived. The patient's son, was at the bank opening up an account for patient therefore could provide payment to [facility]. Marie indicated that they are preparing to admit the patient as early as tomorrow and patient's son was signing the lease papers today. Additionally, it was confirmed that DME will be provided for the patient's needs.
--- NOTE | 2024-06-20 13:39 | ESPR_ITS ---
<Statement entered by Martha Lantigua MD - 06/21/24 07:52> Patient was seen and examined by me personally. I have directly supervised and reviewed documentation by the team resident and agree with its findings with any exceptions or additional findings as below. Plan of care was discussed with the attending, Dr. Ngo. Plan is for discharge tomorrow to [facility] living. Martha Lantigua, PGY-2 Documentation for date of: 06/20/24 Subjective Subjective Interval history: 06/20/24: Overnight, the patient was having extensive wheezing and the night team changed DuoNebs from every 6 to every 4 hours and gave 2 mg of magnesium; moreover, patient's blood pressure was on the softer side and they held the morning blood pressure medication doses. This morning, patient seen and examined in hospital bed remains largely without any concerning symptoms but on exam does have persistent wheezing noted. Patient's atenolol has been discontinued as this could be secondary causes of wheezing; moreover, restarted the patient's lisinopril 40 mg and added nifedipine 30 for better blood pressure control. Regarding the wheezing, added 40 mg of prednisone for 5 days and initiated Advair inhaler. Per social media sr strategy manager, the plan is that the patient will be successfully discharged within the next [address] [facility] on hospice. Exam Vital Signs Temp Pulse Resp BP Pulse Ox O2 Del Method O2 Flow Rate 98.3 F 63 18 154/64 H 92 L Nasal Cannula 2 06/20/24 12:00 06/20/24 12:00 06/20/24 12:06/20/24 12:06/20/24 12:06/20/24 12:06/20/24 12:00 Narrative Exam Physical Exam: GENERAL: Awake, answering questions appropriately, appears younger than stated age, morbidly obese. HEENT: NC/AT. Moist mucosa. PERRLA/EOMI. CARDIO: Heart RRR, no obvious murmurs, no JVD. PULM: No coughing or visible SOB. Mild wheezing noted bilaterally, otherwise Lungs CTA B/L. GI: Abdomen soft, NT/ND, +BS. SKIN/MSK/EXT: No wounds/discoloration/rashes/edema/amputations. +Pedal pulses present B/L. NEURO: Oriented x3, Moves extremities x4, no focal neurological deficits noted. Objective Labs 06/21/24 05:13 06/21/24 05:13 Labs: Laboratory Results - last 24 hr 06/20/24 05:05 WBC 12.9 H RBC 4.76 Hgb 13.7 Hct 43.1 MCV 91 MCH 28.8 MCHC 31.8 RDW Std Deviation 43.7 Plt Count 281 Neut % (Auto) 75 Lymph % (Auto) 13 [place] % (Auto) 8 Eos % (Auto) 4 Baso % (Auto) 0 Neut # (Auto) 9.7 H Lymph # (Auto) 1.6 [place] # (Auto) 1.1 H Eos # (Auto) 0.5 Baso # (Auto) 0.0 Immature Gran # (Auto) 0.04 H Absolute Nucleated RBC 0.00 Immature Gran % 0 Nucleated RBC % 0 Sodium 139 Potassium 4.7 Chloride 100 Carbon Dioxide 30.6 Anion Gap 8 BUN 16 Creatinine 1.0 Estim Creat Clear Calc 60.7 L eGFR 58 L BUN/Creatinine Ratio 16 Glucose 149 H Calculated Osmolality 281 Calcium 9.2 Corrected Calcium 9.4 Total Bilirubin 1.1 AST 10 ALT 11 Alkaline Phosphatase 67 Total Protein 6.5 Albumin 3.8 Globulin 2.7 Albumin/Globulin Ratio 1.4 Quality Measures Quality Measures none Advance care planning discussed with:: patient and child Assessment & Plan Assessment Current Active Medications: Generic Name Dose Route Start Last Admin Trade Name Freq PRN Reason Stop Dose Admin Acetaminophen 650 mg 06/17/24 16:59 Acetaminophen 325 Mg Tablet PO 07/17/24 16:58 Q6H PRN Pain 1-3 and/or fever >100.1 Albuterol 2 puff 06/18/24 17:13 06/19/24 21:10 Albuterol Inh 8 Gm INH 07/18/24 17:12 2 puff Q4H PRN Administration shortness of breath or wheezing Albuterol/Ipratropium 3 ml 06/19/24 23:15 06/20/24 10:46 Albuterol/Ipratropium (Duoneb) Rt Laura 3 Ml Nebu INH 07/19/24 23:14 3 ml Q4HRRT DOMINGO Administration Apixaban 5 mg 06/19/24 21:00 06/20/24 08:22 Apixaban 2.5 Mg Tablet PO 07/19/24 20:59 5 mg BID DOMINGO Administration Aspirin 81 mg 06/18/24 09:00 06/20/24 08:22 Aspirin Ec 81 Mg Tabec PO 07/18/24 08:59 81 mg QDAY DOMINGO Administration Atenolol 50 mg 06/18/24 11:15 06/19/24 09:56 Atenolol 25 Mg Tablet PO 07/18/24 11:14 50 mg QDAY DOMINGO Administration Atorvastatin Calcium 40 mg 06/18/24 21:00 06/19/24 21:02 Atorvastatin Calcium 20 Mg Tablet PO 07/18/24 20:59 40 mg QPM DOMINGO Administration Dextrose 25 ml 06/17/24 16:59 Dextrose 50%-Water Inj 50 Ml Syringe IV 07/17/24 16:58 Q15MIN PRN BG 50-70 responsive npo pt Dextrose 50 ml 06/17/24 16:59 Dextrose 50%-Water Inj 50 Ml Syringe IV 07/17/24 16:58 Q15MIN PRN BG <50 OR BG <70 & pt unresponsive Glucagon 1 mg 06/17/24 16:59 Glucagon Inj 1 Mg Vial IM Q15MIN PRN BG <70, and no IV access Hydralazine HCl 10 mg 06/17/24 18:45 06/19/24 21:02 Hydralazine Inj 20 Mg/Ml Vial IV 07/17/24 18:44 10 mg Q4HR PRN Administration Systolic >180 Insulin Human Lispro 0 unit 06/17/24 22:30 06/20/24 12:01 Insulin Lispro (Admelog) 1 Unit/0.01 Ml Unit SC 07/17/24 22:29 3 unit ACHS DOMINGO Administration Protocol Lisinopril 40 mg 06/18/24 09:00 06/20/24 09:25 Lisinopril 20 Mg Tablet PO 07/18/24 08:59 40 mg QDAY DOMINGO Administration Nifedipine 30 mg 06/21/24 09:00 Nifedipine Xl 30 Mg Tabcr PO 07/21/24 08:59 QDAY DOMINGO Ondansetron HCl 4 mg 06/17/24 16:59 Ondansetron Inj 2 Mg/Ml Inj 2 Ml IV 07/17/24 16:58 Q6H PRN NAUSEA OR VOMITING Protocol Tiotropium [place] [ 2 ea 06/17/24 17:15 06/19/24 22:52 Spiriva Respimat] 1. INH 07/17/24 17:14 Not Given 25 Mcg/Actua Q24H [facility] Protocol Prednisone 40 mg 06/20/24 09:00 06/20/24 09:24 Prednisone 20 Mg Tablet PO 06/25/24 08:59 40 mg QDAY DOMINGO Administration Fluticasone/Salmeterol 1 puff 06/20/24 19:00 Fluticasone/Salmeterol 250/50 14 Dose Inh INH 07/20/24 18:59 BIDRT DOMINGO Sennosides 1 tab 06/18/24 09:00 06/20/24 08:22 Senna Tablet PO 07/18/24 08:59 1 tab QDAY DOMINGO Administration Protocol Sitagliptin Phosphate 100 mg 06/20/24 09:00 06/20/24 08:22 Sitagliptin Phosphate 50 Mg Tablet PO 07/20/24 08:59 100 mg QDAY DOMINGO Administration Plan 78-year-old female with past medical history of hospice care, atrial fibrillation, COPD on 2 L home oxygen, HFpEF, CAD, CVA, type 2 diabetes presenting to the ED today secondary to social issue will be admitted for management of hypertensive urgency and for SNF placement. #Hypertensive urgency, resolved #Hypertension Patient presenting to the ED hypertensive; moreover, patient is on antihypertensive medications at home Per patient, patient takes atenolol 50 mg p.o. daily, furosemide 40 mg and lisinopril 40 mg daily Blood pressure today in the 190s systolic and heart rate in the 50s Plan: Held patient's home atenolol dose as this could be causing some wheezing Continue home lisinopril 40 mg Started nifedipine 30 mg for better blood pressure control As needed IV hydralazine 10 mg every 4 hours for systolic greater than 180 #Social issue Patient is coming from a fdc, patient's cat and dog bather recently arrested for drug possession? Per EMS patient's living conditions were very bad and there was feces all around the patient On exam, the patient has poor hygiene and distinct smell of urine and feces is noted Per ED note the patient is also on hospice and hospice used to visit the patient once a month at that fdc Plan: convention services manager to help the patient with the new SNF placement; will be placed at [facility] with home hospice Patient's son, Cal Rosa is going to be power of trade mark attorney pending paperwork #Atrial fibrillation 7?points CHADVAsc Score Per med rec, patient does not have any anticoagulation medication EKG currently shows normal sinus rhythm with left ventricular hypertrophy and nonspecific ST changes in lateral leads Plan: Continue Eliquis 5 mg p.o. twice daily #COPD on 2 L home oxygen Patient has longstanding history of COPD with 2 L of home oxygen Per patient, patient has been under secondhand smoke but denies ever smoking herself Patient is on Spiriva and albuterol inhalers at home On exam, patient has excessive wheezing noted bilaterally Plan: Added prednisone 40 mg p.o. daily for 5 days DuoNebs every 4 hours Added Advair for the patient Continue supplemental oxygenation Pulse ox #Type 2 diabetes, [id number] Patient states that she takes oral medication for diabetes, unsure at this time Per med rec, there are no diabetic medications listed Last A1c 7.7 on 02/10/2023 A1c of 8.5 on 06/18/2024 Plan: Sliding scale insulin We will discharge the patient on Januvia 100 mg p.o. daily and counseled the patient to ask PCP about GLP-1 medications #HFpEF #CAD #History of CVA Chronic medical condition Pending official med rec Plan: Continue statin and aspirin Hospital Management: Lines: PIV Diet: Cardiac Bowel: Senna GI prophylaxis: Not needed DVT prophylaxis: Heparin subcu Dispo: Pending hypertension management and SNF placement Code: Full Patient seen and assessed with attending Dr. Ngo and senior resident Dr. Grzegorz Palencia, PGY-1 Attending Provider Attestation/Addendum I reviewed labs, imaging, EKG, home medications and prior available records. Face to face evaluation was performed by me. I have personally examined the patient and discussed assessment and plan with the IM team. I reviewed the resident note and agree with the plan with exceptions as below. Chronic hypoxic respiratory failure COPD History of tobacco use Hypertensive urgency History of CVA Chronic A-fib Type 2 diabetes mellitus Continue DuoNebs as needed. Started fluticasone/Solu-Medrol. Continue p.o. steroids. Started lisinopril. Held atenolol. Started nifedipine 30 mg daily. Monitor BP Continue aspirin and atorvastatin Januvia for type 2 diabetes mellitus Started Eliquis Ordered PT evaluation: Working on assisted living facility placement. Pending receiving her payment on 06/21
[2024-06-20] MEDS: FLUTICASONE/SALMETEROL 250/50 14 DOSE INH 1 PUFF INH (18:59)
[2024-06-20] MEDS: ATORVASTATIN CALCIUM 20 MG TABLET 40 MG PO (20:38)
[2024-06-21] VITALS (9 sets, daily range): BP systolic 158–174; BP diastolic 63–68; PULSE 67–73; RESP 17–97; TEMP 36.2–37.4; O2SAT 95–100
[2024-06-21] MEDS: ALBUTEROL/IPRATROPIUM (Duoneb) RT SOL 3 ML NEBU INH ×3 (02:23→10:47)
[2024-06-21 06:00] LABS: Basophils % (Auto) 0 % (0-2.5); Eosinophils % (Auto) 0 % (0-10); Hematocrit 40.4 % (36.0-46.0); Hemoglobin 13.1 g/dL (12.0-16.0); Immature Granulocytes % (Auto) 1 % (0-0); Lymphocytes # (Auto) 1.2 Thou/mm3 (1.0-4.8); Lymphocytes % (Auto) 7 % (10-50); Mean Corpuscular HGB Conc 32.4 g/dl (31.0-37.0); Mean Corpuscular Hemoglobin 28.7 pg (25.0-35.0); Mean Corpuscular Volume 88 fL (80-100); Monocytes # (Auto) 1.3 Thou/mm3 (0.0-0.8); Monocytes % (Auto) 7 % (0-12); Neutrophils # (Auto) 15.9 Thou/mm3 (1.8-7.7); Neutrophils % (Auto) 86 % (37-80); Nucleated Red Blood Cell % 0 /100 WBC (0); Platelet Count 280 Thou/mm3 (140-440); RDW Standard Deviation 42.5 fL (36.4-46.3); Red Blood Count 4.57 Miln/mm3 (4.00-5.20); White Blood Count 18.6 Thou/mm3 (3.6-11.0)
[2024-06-21 06:49] LABS: Alanine Aminotransferase < 7 U/L (10-49); Albumin, Serum 3.6 gm/dL (3.4-4.8); Albumin/Globulin Ratio 1.4 (1.2-2.2); Alkaline Phosphatase 63 U/L (46-116); Anion Gap 6 (7-16); Aspartate Amino Transferase < 10 U/L (0-34); BUN/Creatinine Ratio 20 Ratio (12-20); Bilirubin,Total 0.8 mg/dL (0.3-1.2); Blood Urea Nitrogen 20 mg/dL (9-23); Calcium 9.1 mg/dL (8.3-10.6); Calcium (Corrected) 9.4 mg/dL (8.5-10.1); Carbon Dioxide 27.7 mMol/L (20.0-31.0); Chloride 102 mMol/L (98-107); Estimated Creatinine Clearance 60.7 mL/min (>60); Globulin 2.6 gm/dL (2.3-3.5); Glucose 188 mg/dL (74-106); Osmolality,Calculated 279 (275-295); Potassium 4.6 mMol/L (3.4-5.1); Sodium 136 mMol/L (136-145); Total Protein 6.2 gm/dL (5.7-8.2); eGFR 58 See Note
[2024-06-21] MEDS: FLUTICASONE/SALMETEROL 250/50 14 DOSE INH 1 PUFF INH (06:51)
[2024-06-21] MEDS: INSULIN LISPRO (AdmeLOG) 1 UNIT/0.01 ML UNIT SC ×2 (07:35→11:25)
[2024-06-21] MEDS: sitaGLIPtin PHOSPHATE 50 MG TABLET 100 MG PO (08:59)
[2024-06-21] MEDS: predniSONE 20 MG TABLET 40 MG PO (09:00)
[2024-06-21] MEDS: ASPIRIN EC 81 MG TABEC PO (09:00)
[2024-06-21] MEDS: SENNA TABLET 1 TAB PO (09:00)
[2024-06-21] MEDS: NIFEdipine XL 30 MG TABCR PO (09:00)
[2024-06-21] MEDS: Lisinopril 20 MG TABLET 40 MG PO (09:01)
[2024-06-21] MEDS: APIXABAN 2.5 MG TABLET 5 MG PO (09:01)
--- NOTE | 2024-06-21 09:27 | PC.SS ---
Addendum entered by LONG Hartman 06/21/24 13:52: [facility] ETA 2:30pm. Bed side nurse aware. Eleonora with [facility] was notified. Addendum entered by LONG Hartman 06/21/24 13:33: Received call from Marie at [facility] that they can accept the patient now. DME was delivered by hospice agency. Confirmed with Marie, the patient received a walker. Transportation arranged via [facility] as patient will need transport to [facility]. Pending ETA. Addendum entered by LONG Hartman 06/21/24 11:49: SS follow up: met at bed side with patient and her son, Cal to confirm the d/c plan. They are both agreeable. SS present while patient signed updated POA paperwork with her son Cal in which the patient was agreeable to. Currently, pending call from [facility] to give the ok for patient to d/c over with them. Addendum entered by LONG Hartman 06/21/24 10:14: SS update: per Marie at [facility], patient is pending DME to be delivered to [facility], once ETA for DME has been established, the patient to d/c over to [facility]. Marie to update SS once that has been confirmed. Patient will need transportation services arranged as [facility] bus is not available today. Original Note: SS follow up: left a voicemail for Marie from [facility], to confirm if the patient is able to d/c to [facility] today.
--- NOTE | 2024-06-21 11:32 | ESDS_ITS ---
<Statement entered by Martha Lantigua MD - 06/22/24 07:27> Patient was seen and examined by me personally. I have directly supervised and reviewed documentation by the team resident and agree with its findings with any exceptions or additional findings as below. Plan of care was discussed with the attending, Dr. Ngo. Today patient was doing well, lung sounds were clear with significant improvement of wheezing after starting steroids. Patient was discharged to [facility] living [facility]. Martha Lantigua, PGY-2 Planned Discharge Date 06/21/24 DS: Providers Provider Date of admission: 06/17/24 16:59 Primary care physician: Agustín Reece MD Admitting Provider: Juan M Sherman MD Attending Provider on Admission: Dany Ngo MD Consults: 06/15/24 12:18 PT [Referral Physical Therapy] Stat Comment: PT EVAL FOR SNF PLACEMENT Physician Instructions: Instructions: [facility] 06/15/24 13:11 Referral Physical Therapy Stat Comment: Physician Instructions: 06/17/24 23:29 [facility] Referral - Safety Routine Comment: Positive screening for safety needs. [facility] Referral - Transportation Routine Comment: Positive screening for transportation needs. 06/20/24 13:53 Referral Hospice Routine Comment: Attending Provider on DC: Obey Palencia MD Discharging Provider: Obey Palencia MD DS: Diagnosis Problem List Completed Was Problem List Reviewed/Reconciled?: Yes Hospital Course Hospital Course Hospital course: 78-year-old female with past medical history of hospice care, atrial fi brillation, COPD on 2 L home oxygen, HFpEF, CAD, CVA, type 2 diabetes presented to the ED on 06/17 secondary to a social issue regarding her place of residence and her sandblaster paint sprayer recently being arrested for possession. Patient also in the ED was found to be in hypertensive urgency with a blood pressure systolic in the 190s but otherwise vital stable. Imaging studies including chest x-ray showed moderate vascular congestion and head CT was negative for any acute process but there was a 4 mm left parotid nodule noted. EKG showed left ventricular hypertrophy and nonspecific ST changes in lateral leads otherwise normal sinus rhythm. Patient was admitted for hypertensive urgency and for SNF placement. During hospitalization, it was noted that the patient was having some wheezing likely secondary to COPD as a result patient was started on Advair inhaler and breathing treatments. Patient was also started on prednisone and she will be tapered upon discharge. Patient progressively made symptomatic improvement and regarding her social issues; moreover, patient's son was able to retain power of commercial real estate attorney and notified staff that he would like the patient not to return to the previous residence. Patient will be discharged to [facility] with the following strict instructions. Please take Eliquis 5mg by mouth twice a day for your atrial fibrillation Please take Januvia 100mg by mouth daily for Type 2 Diabetes; ask your PCP about GLP-1 medications Please take Nifedipine 30mg by mouth daily for Hypertension Continue 3 more days of prednisone 40mg daily for COPD exacerbation Stop taking Atenolol 50mg Continue all home medications and inhalers as prescribed Follow up with Dr. Reece on Monday June 24, 2024 at 2:45pm - [address] [place] [address] If your symptoms worsen or if you develop new chest pain, shortness of breath, dizziness or loss of consciousness - please come back to the ED immediately. Hospital Diagnosis: #Hypertensive urgency, resolved #Hypertension #Social issue #Atrial fibrillation #COPD on 2 L home oxygen #Type 2 diabetes, [id number] #HFpEF #CAD #History of CVA Obey Palencia, PGY-1 Status at Discharge Overall status at discharge: patient is progressing back to baseline Time Spent with Patient Time attestation: Total time spent providing and/or coordinating discharge services: 45 minutes Time spent: Greater than 30 minutes Exam Vital Signs Temp Pulse Resp BP Pulse Ox O2 Del Method O2 Flow Rate 97.1 F 67 23 H 174/68 H 100 Nasal Cannula 1 06/21/24 07:29 06/21/24 10:49 06/21/24 10:49 06/21/24 09:01 06/21/24 10:49 06/21/24 07:29 06/21/24 07:29 Narrative Exam Physical Exam: GENERAL: Awake, answering questions appropriately, appears younger than stated age, morbidly obese. HEENT: NC/AT. Moist mucosa. PERRLA/EOMI. CARDIO: Heart RRR, no obvious murmurs, no JVD. PULM: No coughing or visible SOB. No wheezing noted and lungs CTA B/L. GI: Abdomen soft, NT/ND, +BS. SKIN/MSK/EXT: No wounds/discoloration/rashes/edema/amputations. +Pedal pulses present B/L. NEURO: Oriented x3, Moves extremities x4, no focal neurological deficits noted. Discharge Plan Plan Patient Disposition: Xfer Other Facility Pt Being Transferred to: Other-Specify in comment Disposition Comment: [facility] Patient condition on transfer: Stable Care Plan Goals: Please take Eliquis 5mg by mouth twice a day for your atrial fibrillation Please take Januvia 100mg by mouth daily for Type 2 Diabetes; ask your PCP about GLP-1 medications Please take Nifedipine 30mg by mouth daily for Hypertension Continue 3 more days of prednisone 40mg daily for COPD exacerbation Stop taking Atenolol 50mg Continue all home medications and inhalers as prescribed Follow up with Dr. Reece on Monday June 24, 2024 at 2:45pm - [address] [place] [address] If your symptoms worsen or if you develop new chest pain, shortness of breath, dizziness or loss of consciousness - please come back to the ED immediately. Prescriptions/Referrals Prescriptions/Med Rec: New Januvia 50 mg Tablet 100 mg PO QDAY 30 Days Qty: 60 0RF nifedipine 30 mg Tablet Extended Release 24hr 30 mg PO QDAY 30 Days Qty: 30 0RF prednisone 20 mg Tablet 40 mg PO QDAY 3 Days Qty: 6 0RF Taper: Prednisone Taper 20 mg DAILY for 3 Days and 0 Hour Eliquis 5 mg tablet 5 mg PO BID 30 Days Qty: 60 0RF Continued albuterol sulfate 90 mcg/actuation HFA aerosol inhaler 2 inh inhalation Q4H PRN (Reason: shortness of breath or wheezing) Qty: 8.5 0RF Spiriva Respimat 1.25 mcg/actuation mist 2 inh inhalation Q24H aspirin 81 mg tablet,delayed release (DR/EC) 81 mg PO QDAY Qty: 30 0RF lisinopril 40 mg tablet 40 mg PO QDAY Qty: 30 2RF atorvastatin 40 mg tablet 40 mg PO QPM Qty: 30 0RF albuterol sulfate 90 mcg/actuation HFA aerosol inhaler 2 puff INHALATION Q4HR PRN (Reason: Shortness Of Breath) Qty: 1 0RF furosemide 40 mg tablet 40 mg PO 1XD albuterol sulfate 2.5 mg /3 mL (0.083 %) solution for nebulization 2.5 mg inhalation Q4H PRN (Reason: shortness of breath or wheezing) Qty: 90 0RF Discontinued atenolol 50 mg Tablet 50 mg PO QDAY Qty: 30 0RF Referrals: Agustín Reece MD [Primary Care Provider] - Outpatient Orders (i.e. Home Health, Labs, Imaging): DME: Walker-Front Wheel (Routine) Location: None Selected Ordered By: Martha Lantigua Patient/Caregiver Discharge Instructions Education Materials: Controlling High Blood Pressure, AFL/Afib, COPD: Using Inhalers, Blood Pressure Check Steps Print Language: Kinyarwanda Stand Alone Forms: [employer] Award Info., Patient Portal Info Letter Discharge Order Discharge Orders: Discharge (Routine); Ordered 06/21/24 Ordered By: Obey Palencia Quality Discharge Quality Measures VTE prophylaxis MD Attestestation MD Attestation I reviewed labs, imaging, EKG, home medications and prior available records. Face to face evaluation was performed by me. I have personally examined the patient and discussed assessment and plan with the IM team. I reviewed the resident note and agree with the plan with exceptions as below. Chronic hypoxic respiratory failure COPD History of tobacco use Hypertensive urgency History of CVA Chronic A-fib Type 2 diabetes mellitus Started fluticasone/Solu-Medrol. Continue p.o. steroids for 3 more days Started lisinopril. Held atenolol. Started nifedipine 30 mg daily. Monitor BP Continue aspirin and atorvastatin Januvia for type 2 diabetes mellitus Started Eliquis Ordered PT evaluation: She will be placed at assisted living facility placement. Time spent is 40 minutes. More than 50% of the time was spent on patient education and coordination of care.
== END 2024-06-21 15:09 | disposition intermediate care facility (04) | DRG 305 ==
LOC: SERX 06-17 16:32 → SERHOLD 06-17 17:23 → S3SX 06-17 19:59
PROVIDERS: Emergency Medicine; Admitting Provider Student in an Organized Health Care Education/Training Program; Emergency Provider Emergency Medicine; PCP Family Medicine; Visit Provider Student in an Organized Health Care Education/Training Program
DX: I16.0 Hypertensive urgency (principal); I50.32 Chronic diastolic (congestive) heart failure; J96.10 Chronic respiratory failure, unspecified whether with hypoxia or hypercapnia; I48.20 Chronic atrial fibrillation, unspecified; J96.11 Chronic respiratory failure with hypoxia; J44.9 Chronic obstructive pulmonary disease, unspecified; E11.9 Type 2 diabetes mellitus without complications; I25.10 Atherosclerotic heart disease of native coronary artery without angina pectoris; E78.5 Hyperlipidemia, unspecified; I11.0 Hypertensive heart disease with heart failure; R00.1 Bradycardia, unspecified; Z77.22 Contact with and (suspected) exposure to environmental tobacco smoke (acute) (chronic); Z86.73 Personal history of transient ischemic attack (TIA), and cerebral infarction without residual deficits; Z99.81 Dependence on supplemental oxygen; Z87.891 Personal history of nicotine dependence; Z79.01 Long term (current) use of anticoagulants; Z79.84 Long term (current) use of oral hypoglycemic drugs; Z79.82 Long term (current) use of aspirin; Z79.899 Other long term (current) drug therapy; Z51.5 Encounter for palliative care; Z75.1 Person awaiting admission to adequate facility elsewhere
CPT/HCPCS: 36415; 70450; 71045; 80053; 80307; 80320; 81001; 83036; 83735; 84100; 84443; 84484; 85025; 85610; 85730; 87400; 87811; 90839; 93005; 93225; 94640; 96372; 99285; A9270; J0360; J1643; J1815; J3475; J7512; G0480

== ENCOUNTER 2024-11-24 14:57 | Emergency (ER) | payer OTHER, SELFPAY ==
[2024-11-24 15:06] VITALS: BP 114/50; PULSE 85; RESP 18; TEMP 37.7; O2SAT 93
--- NOTE | 2024-11-24 15:07 | XR_ITS ---
Examination: AP chest single view TECHNIQUE: AP portable upright chest single view Date and time: November 24, 2024 1617 hours, comparison June 15, 2024 INDICATIONS: Chest pain and shortness of breath coughing beginning 3 days ago. FINDINGS: Atelectasis and pneumonia left base Normal heart size No pulmonary edema IMPRESSION: Atelectasis and pneumonia left base
[2024-11-24 15:08] VITALS: BMI 40.8
--- NOTE | 2024-11-24 15:08 | PD.EDURI ---
Upper Respiratory Inf. RME/HPI General Chief Complaint: Weakness Stated Complaint: WEAKNESS, SOB Time Seen by Provider: 11/24/24 15:04 Source: patient and EMS Arrival date/time: 11/24/24 14:57 Limitations: no limitations RME / HPI RME / HPI Narrative: Patient is a 79-year-old female was brought in by EMS. She has a history of COPD and possible CHF. She states she uses oxygen only as needed. She is here today with a 1 day history of runny nose, cough, and reported shortness of breath. She has no fevers or chills. She has no chest pain. She has abdominal pain, nausea, vomiting. No new lower leg edema. She has no other acute complaints. Related Data Home Medications ?Medication ?Instructions ?Recorded ?Confirmed furosemide 40 mg tablet 40 mg PO 1XD 07/28/23 06/15/24 tiotropium bromide 1.25 2 inh inhalation Q24H 06/15/24 06/15/24 mcg/actuation mist for inhalation (Spiriva Respimat) Previous Rx's ?Medication ?Instructions ?Recorded albuterol sulfate 90 mcg/actuation 2 inh inhalation Q4H PRN shortness 07/09/22 aerosol inhaler of breath or wheezing #8.5 grams albuterol sulfate 90 mcg/actuation 2 puff inhalation Q4HR PRN 04/11/23 aerosol inhaler Shortness Of Breath #1 inh aspirin 81 mg tablet,delayed 81 mg PO QDAY #30 tabs 04/11/23 release atorvastatin 40 mg tablet 40 mg PO QPM #30 tabs 04/11/23 lisinopril 40 mg tablet 40 mg PO QDAY #30 tabs 04/11/23 albuterol sulfate 2.5 mg/3 mL 2.5 mg (3 mL) inhalation Q4H PRN 09/18/23 (0.083 %) solution for nebulization shortness of breath or wheezing #90 mL azithromycin 250 mg tablet 250 mg PO QDAY 4 days #4 tabs 11/24/24 nirmatrelvir 300 mg (150 mg See Rx Instructions PO .COMPLEX 11/24/24 x2)-ritonavir 100 mg tablet,dose #30 tabs pack (Paxlovid) Allergies Allergy/AdvReac Type Severity Reaction Status Date / Time No Known Allergies Allergy Verified 06/15/24 10:52 Review of Systems Review of Systems Systems Reviewed: All systems reviewed, normal except as documented ED Exam General Limitations: Present no limitations General appearance: Present alert and in no apparent distress Head Head exam: Present atraumatic Eye Eye exam: Present normal appearance, PERRL and EOMI ENT ENT exam: Present normal exam, normal oropharynx and mucous membranes moist Neck Neck exam: Present normal inspection, full ROM and trachea midline Chest Chest inspection: Present normal inspection and symmetric chest wall rise Respiratory Respiratory exam: Present normal lung sounds bilaterally; Absent respiratory distress, wheezes, stridor, accessory muscle use or prolonged expiratory phase Cardiovascular Cardiovascular exam: Present regular rate, normal rhythm and normal heart sounds Abdominal Exam Abdominal exam: Present soft and normal bowel sounds Extremities Exam Extremities exam: Present normal inspection and full ROM Back Exam Back exam: Present normal inspection and full ROM Neurological Exam Neurological exam: Present alert and oriented X3 Psychiatric Psychiatric exam: Present normal affect and normal mood Skin Skin exam: Present warm, dry, intact and normal color Course Quality Measures none Orders Category Date Time Status Bedside COVID-19 Antigen Test NOW Care 11/24/24 15:07 Active Bedside Influenza A&B Antigen Test NOW Care 11/24/24 15:07 Completed XR chest 1V Stat Exams 11/24/24 15:07 Completed Azithromycin Po [Zithromax PO] Med 11/24/24 17:51 Discontinued 500 mg PO X1 ONE Vital Signs Vital signs: Vital Signs Temperature 99.8 F 11/24/24 15:06 Pulse Rate 85 11/24/24 15:06 Respiratory Rate 18 11/24/24 15:06 Blood Pressure 114/50 L 11/24/24 15:06 Pulse Oximetry (%) 93 L 11/24/24 15:06 Oxygen Delivery Method Room Air 11/24/24 15:06 Upper Respiratory Infection MDM Narrative MDM Narrative:: Patient is a 79-year-old female was brought in by EMS. She has a history of COPD and possible CHF. She states she uses oxygen only as needed. She is here today with a 1 day history of runny nose, cough, and reported shortness of breath. She has no fevers or chills. She has no chest pain. She has abdominal pain, nausea, vomiting. No new lower leg edema. She has no other acute complaints. On exam, patient is nontoxic-appearing in no visible signs distress. Vital signs are stable. Lung tones are clear bilaterally. She has no respiratory disstress. During the ER course, patient maintained her oxygen saturation. Her COVID screen was positive. Chest reveals potential developing lobar pneumonia at the left base. Patient was given a dose of azithromycin here. She will also be discharged with a prescription of this in addition to Paxlovid. She agrees to return here as needed for any worsening or emergent changes. Patient data External records reviewed:: None Clinical information provided by:: patient and EMS Social determinants that could affect healthcare access:: none Patient has the following chronic illnesses:: COPD, CHF How is presenting disease/condition affected by chronic disease/condition?: exacerbated by Evaluation data The following diagnostics were reviewed and interpreted by me:: lab results (COVID screen is positive) and radiology exam(s) (Chest x-ray reveals developing pneumonia) Lab and/or radiology exams considered but not ordered:: n/a Interpretation Summary: n/a Medications / Prescriptions Medications or Prescriptions considered but not ordered:: n/a Medication administrations:: Medication Administration History Discontinued Medications Azithromycin (Azithromycin 250 Mg Tablet) 500 mg PO X1 ONE Stop: 11/24/24 17:52 see above Consultations Consultation(s) initiated? (list below): No Diagnosis Upper Respiratory Differential Diagnosis: upper respiratory infection, viral infection, bronchitis and influenza Most likely diagnosis given after review of the tests above:: COVID, COPD exasperation Admission Indicated Admission indicated?: not indicated Admission Request Was there a request for admission?: No Disposition Plan Disposition Plan: Discharge Discharge Attestation Discharge Attestation: The patient and all family members were given an opportunity to ask questions and understood the discharge instructions. Discharge instructions specifically effects, indications for sooner follow up or return to the emergency department, and the expected course of current diagnosis. Patient condition: Stable Discharge Plan Plan Patient Disposition: HOME (Self Care) Patient condition on transfer: Stable Prescriptions/Referrals Prescriptions/Med Rec: New Paxlovid 300 mg (150 mg x 2)-100 mg tablets,dose pack See Rx Instructions .ROUTE .COMPLEX Qty: 30 0RF Rx Instructions: take TWO 150 mg tablets of nirmatrelvir with ONE 100 mg tablet of ritonavir twice daily for 5 days azithromycin 250 mg tablet 250 mg PO QDAY 4 Days Qty: 4 0RF Rx Instructions: start on day 2 of therapy No Action albuterol sulfate 90 mcg/actuation HFA aerosol inhaler 2 inh inhalation Q4H PRN (Reason: shortness of breath or wheezing) Qty: 8.5 0RF Spiriva Respimat 1.25 mcg/actuation mist 2 inh inhalation Q24H aspirin 81 mg tablet,delayed release (DR/EC) 81 mg PO QDAY Qty: 30 0RF lisinopril 40 mg tablet 40 mg PO QDAY Qty: 30 2RF atorvastatin 40 mg tablet 40 mg PO QPM Qty: 30 0RF albuterol sulfate 90 mcg/actuation HFA aerosol inhaler 2 puff INHALATION Q4HR PRN (Reason: Shortness Of Breath) Qty: 1 0RF furosemide 40 mg tablet 40 mg PO 1XD albuterol sulfate 2.5 mg /3 mL (0.083 %) solution for nebulization 2.5 mg inhalation Q4H PRN (Reason: shortness of breath or wheezing) Qty: 90 0RF Referrals: Agustín Reece MD [Primary Care Provider] - In 1 week Problem List Clinical Impression: COPD exacerbation, COVID-19 Patient/Caregiver Discharge Instructions Education Materials: COVID-19 Home Care, COPD Meds Additional Instructions: - You may use your oxygen at home to keep your oxygen saturation above 92%. - Use the provided medications as prescribed. We are writing a prescription for Paxlovid and azithromycin. - Please return to the emergency room at anytime for any worsening or emergent changes. Print Language: [place] Stand Alone Forms: [facility] Award Info., Patient Portal Info Letter
[2024-11-24 15:13] VITALS: PULSE 89; RESP 20; O2SAT 94
[2024-11-24 17:00] VITALS: BP 135/73; PULSE 70; PULSE 71; RESP 18; RESP 19; RESP 85; TEMP 36.9; O2SAT 95
[2024-11-24 18:15] VITALS: BP 133/88; PULSE 72; RESP 18; TEMP 36.9; O2SAT 94
[2024-11-24] MEDS: AZITHROMYCIN 250 MG TABLET 500 MG PO (18:41)
--- NOTE | 2024-11-24 19:21 | PC.NURSE ---
social media developer notified pt needs ride home. ss worker at bedside discussing plan to get pt home with son harry.
[2024-11-24 19:48] VITALS: BP 152/76; PULSE 95; RESP 20; TEMP 36.8; O2SAT 95
== END 2024-11-24 19:49 | disposition home or self-care (01) ==
PROVIDERS: Emergency Provider Emergency Medicine; PCP Family Medicine
DX: U07.1 COVID-19 (principal); J44.1 Chronic obstructive pulmonary disease with (acute) exacerbation; J44.0 Chronic obstructive pulmonary disease with (acute) lower respiratory infection; J18.9 Pneumonia, unspecified organism; I50.9 Heart failure, unspecified; Z79.899 Other long term (current) drug therapy; Z79.82 Long term (current) use of aspirin
CPT/HCPCS: 71045; 87400; 87811; 99283; A9270